=== PATIENT | male | born 1975 | race Caucasian/White ===

== ENCOUNTER 2024-03-08 02:18 | Emergency (ER) | payer BC, SELFPAY ==
[2024-03-08 02:32] VITALS: BP 130/90; PULSE 108; RESP 18; TEMP 36.4; O2SAT 97; BMI 31.5
--- NOTE | 2024-03-08 02:45 | XR_ITS ---
Examination: PA lateral chest 2 views Technique: Upright PA lateral chest 2 views Exam date and time: March 08, 2024 0303 hrs. Comparison October 04, 2010 Indications: Coughing today. Findings: Mild CHF Mild enlargement cardiac contour Prominent vascular congestion with perihilar edema and fluid in the fissures on the lateral view as well as blunting of the posterior costophrenic angles Possible superimposed pneumonia right base Impression: Mild CHF Suspicious for mild pneumonia right base
--- NOTE | 2024-03-08 02:46 | PD.EDRME ---
Rapid Medical Screening Exam RME Arrival date/time: 03/08/24 02:18 48-year-old male with past medical history of diabetes presents emergency department complaining of shortness of breath with productive cough has been ongoing for several days. Chief Complaint: Shortness of Breath/Dyspnea Time Seen by Provider: 03/08/24 02:40 Vital signs: Vital Signs Temperature 97.5 F 03/08/24 02:32 Pulse Rate 108 H 03/08/24 02:32 Respiratory Rate 18 03/08/24 02:32 Blood Pressure 130/90 H 03/08/24 02:32 Pulse Oximetry (%) 97 03/08/24 02:32 Oxygen Delivery Method Room Air 03/08/24 02:32 Vital signs reviewed by provider: Yes
[2024-03-08 03:30] LABS: Basophils # (Auto) 0.1 Thou/mm3 (0.0-0.2); Basophils % (Auto) 1 % (0-2.5); Eosinophils # (Auto) 0.2 Thou/mm3 (0.0-0.5); Eosinophils % (Auto) 2 % (0-10); Hematocrit 51.4 % (41.0-53.0); Hemoglobin 17.8 g/dL (13.5-16.0); Immature Granulocytes % (Auto) 1 % (0-0); Immature Granulocytes Auto 0.06 Thou/mm3 (0.00-0.00); Lymphocytes # (Auto) 2.2 Thou/mm3 (1.0-4.8); Lymphocytes % (Auto) 22 % (10-50); Mean Corpuscular HGB Conc 34.6 g/dl (31.0-37.0); Mean Corpuscular Hemoglobin 28.3 pg (25.0-35.0); Mean Corpuscular Volume 82 fL (80-100); Monocytes # (Auto) 0.8 Thou/mm3 (0.0-0.8); Monocytes % (Auto) 8 % (0-12); Neutrophils # (Auto) 6.8 Thou/mm3 (1.8-7.7); Neutrophils % (Auto) 67 % (37-80); Nucleated Red Blood Cell % 0 /100 WBC (0); Platelet Count 328 Thou/mm3 (140-440); RDW Standard Deviation 38.5 fL (35.1-43.9); Red Blood Count 6.29 Miln/mm3 (4.50-5.90); White Blood Count 10.1 Thou/mm3 (3.8-10.6)
[2024-03-08 03:59] LABS: Alanine Aminotransferase 44 U/L (10-49); Albumin, Serum 3.7 gm/dL (3.5-5.0); Albumin/Globulin Ratio 1.5 (1.2-2.2); Alkaline Phosphatase 106 U/L (46-116); Anion Gap 7 (7-16); Aspartate Amino Transferase 36 U/L (0-34); BUN/Creatinine Ratio 20 Ratio (12-20); Bilirubin,Total 0.5 mg/dL (0.3-1.2); Blood Urea Nitrogen 18 mg/dL (9-23); Calcium 8.9 mg/dL (8.3-10.6); Calcium (Corrected) 9.1 mg/dL (8.5-10.1); Carbon Dioxide 24.4 mMol/L (20.0-31.0); Chloride 100 mMol/L (98-107); Creatinine (Component) 0.9 mg/dL (0.6-1.3); Estimated Creatinine Clearance 116.3 mL/min (>60); Globulin 2.5 gm/dL (2.3-3.5); Glucose 349 mg/dL (74-106); Osmolality,Calculated 278 (275-295); Potassium 4.2 mMol/L (3.4-5.1); Sodium 131 mMol/L (136-145); Total Protein 6.2 gm/dL (5.7-8.2); Troponin I 0.044 ng/mL (0.0-0.045); eGFR > 60 See Note
--- NOTE | 2024-03-08 04:43 | PD.EDSOB ---
ED SOB =RME/HPI General Chief Complaint: Shortness of Breath/Dyspnea Stated Complaint: DIFF BREATHING Time Seen by Provider: 03/08/24 02:40 Source: patient Arrival date/time: 03/08/24 02:18 48-year-old male with past medical history of diabetes presents emergency department complaining of shortness of breath with productive cough has been ongoing for several days. Mode of arrival: ambulatory Limitations: no limitations RME / HPI RME / HPI Narrative: 03/08/24 02:18 48-year-old male with past medical history of diabetes presents emergency department complaining of shortness of breath with productive cough has been ongoing for several days. Related Data Previous Rx's ?Medication ?Instructions ?Recorded ibuprofen 800 mg tablet 800 mg PO TID PRN pain #30 tabs 10/18/22 levofloxacin 750 mg tablet 750 mg PO QDAY 5 days #5 tabs 03/08/24 Allergies Allergy/AdvReac Type Severity Reaction Status Date / Time No Known Allergies Allergy Verified 03/08/24 02:20 Review of Systems Review of Systems Systems Reviewed: All systems reviewed, normal except as documented Constitutional Constitutional: Reports system reviewed and no additional complaints, except as documented, Denies body ache(s), Denies chills and Denies fever(s) Eyes Eyes: Reports system reviewed and no additional complaints, except as documented and Denies change in vision ENT Ears, Nose, Mouth, and Throat: Reports system reviewed and no additional complaints, except as documented, Denies disequilibrium, Denies dizziness, Denies sore throat and Denies vertigo Cardiovascular Cardiovascular: Reports system reviewed and no additional complaints, except as documented, Denies chest pain and Reports dyspnea Respiratory Respiratory: Reports system reviewed and no additional complaints, except as documented, Denies chest congestion, Reports cough and Reports dyspnea Gastrointestinal Gastrointestinal: Reports system reviewed and no additional complaints, except as documented, Denies abdominal pain, Denies nausea and Denies vomiting Musculoskeletal Musculoskeletal: Reports system reviewed and no additional complaints, except as documented, Denies abnormal gait and Denies arthralgias Integumentary/Breasts Skin/Breast: Reports system reviewed and no additional complaints, except as documented, Denies erythema, Denies rash and Denies wounds Neurologic Neurologic: Reports system reviewed and no additional complaints, except as documented, Denies abnormal gait, Denies disequilibrium, Denies dizziness and Denies vertigo Past Medical History Social History SMOKING STATUS: Never smoker ED Exam General Limitations: Present no limitations General appearance: Present alert and in no apparent distress Head Head exam: Present atraumatic Eye Eye exam: Present normal appearance, PERRL and EOMI ENT ENT exam: Present normal exam, normal oropharynx and mucous membranes moist Neck Neck exam: Present normal inspection, full ROM and trachea midline Chest Chest inspection: Present normal inspection and symmetric chest wall rise Respiratory Respiratory exam: Present normal lung sounds bilaterally Expanded Respiratory Exam Location: Right: decreased breath sounds and Lower: decreased breath sounds Cardiovascular Cardiovascular exam: Present regular rate, normal rhythm and normal heart sounds Abdominal Exam Abdominal exam: Present soft and normal bowel sounds Extremities Exam Extremities exam: Present normal inspection and full ROM Back Exam Back exam: Present normal inspection and full ROM Neurological Exam Neurological exam: Present alert, oriented X3 and CN II-XII intact Psychiatric Psychiatric exam: Present normal affect and normal mood Skin Skin exam: Present warm, dry, intact and normal color Course Quality Measures none Orders Category Date Time Status Bedside COVID-19 Antigen Test NOW Care 03/08/24 02:45 Active Bedside Influenza A&B Antigen Test NOW Care 03/08/24 02:45 Completed XR chest 2V Stat Exams 03/08/24 02:45 Taken CBC Stat Lab 03/08/24 03:03 Completed Comprehensive Metabolic Panel Stat Lab 03/08/24 03:03 Completed Drug Screen,Urine Stat Lab 03/08/24 02:45 Ordered Troponin I Stat Lab 03/08/24 03:03 Completed Urinalysis, C/S if Indicated Stat Lab 03/08/24 02:45 Ordered 1,000 mg IM w/Lido* 1% Med 03/08/24 04:43 Ordered cefTRIAXone [Rocephin] 1,000 mg Lidocaine 1% 20 ml [Xylocaine 1% 20 ML] 2.1 ml IM X1 Vital Signs Vital signs: Vital Signs Temperature 97.5 F 03/08/24 02:32 Pulse Rate 108 H 03/08/24 02:32 Respiratory Rate 18 03/08/24 02:32 Blood Pressure 130/90 H 03/08/24 02:32 Pulse Oximetry (%) 97 03/08/24 02:32 Oxygen Delivery Method Room Air 03/08/24 02:32 97% room air within normal limits Shortness of Breath / Dyspnea MDM Narrative MDM Narrative:: 48-year-old male with past medical history of diabetes presents emergency department complaining of shortness of breath with productive cough has been ongoing for several days. CBC was unremarkable for any leukocytosis CMP was unremarkable other than elevated blood sugar. Chest x-ray right lower lobe pneumonia based on my interpretation. Patient appears nontoxic and hemodynamically stable. Patient not appear in any respiratory distress and is speaking in full sentences. Patient given IM Rocephin dose and instructed to stop taking Z-Jesus that was taking at home instructed to start taking Levaquin as prescribed. Patient instructed to follow-up with primary care provider in 24 to 48 hours and return to emergency department for any worsening symptoms or as needed. Patient data External records reviewed:: [facility] previous records Clinical information provided by:: patient Social determinants that could affect healthcare access:: none Patient has the following chronic illnesses:: See chart How is presenting disease/condition affected by chronic disease/condition?: uneffected by Evaluation data The following diagnostics were reviewed and interpreted by me:: lab results and radiology exam(s) Lab and/or radiology exams considered but not ordered:: Ordered Interpretation Summary: Interpreted by me Medications / Prescriptions Medications or Prescriptions considered but not ordered:: Ordered Medication administrations:: Given Consultations Consultation(s) initiated? (list below): No Diagnosis Shortness of Breath Differential Diagnosis: acute exacerbation of chronic obstructive airways disease, congestive heart failure, community acquired pneumonia, asthma with exacerbation and pulmonary embolism Most likely diagnosis given after review of the tests above:: Pneumonia Admission Indicated Admission indicated?: not indicated Admission Request Was there a request for admission?: No Disposition Plan Disposition Plan: Discharge Discharge Attestation Discharge Attestation: The patient and all family members were given an opportunity to ask questions and understood the discharge instructions. Discharge instructions specifically effects, indications for sooner follow up or return to the emergency department, and the expected course of current diagnosis. Patient condition: Stable Discharge Plan Plan Patient Disposition: HOME (Self Care) Disposition Comment: Stable Prescriptions/Referrals Prescriptions/Med Rec: New levofloxacin 750 mg tablet 750 mg PO QDAY 5 Days Qty: 5 0RF No Action ibuprofen 800 mg tablet 800 mg PO TID PRN (Reason: pain) Qty: 30 0RF Referrals: Kristopher Burnett MD [Primary Care Provider] - In 1 week Problem List Clinical Impression: Community acquired pneumonia Patient/Caregiver Discharge Instructions Discharge Activity: activity as tolerated Education Materials: ED Pneumonia (Adult) Additional Instructions: Stop taking Z-Jesus. Start taking new antibiotic as prescribed. Close follow-up primary care provider in 24 to 48 hours and return to emergency department for any worsening symptoms or as needed. Print Language: [place] Stand Alone Forms: Laly Award Info., Patient Portal Info Letter PA/DRUG ROOM CLERK Supervising Physician PA/DRUG ROOM CLERK Supervising Physician: Dr. Jack
[2024-03-08] MEDS: cefTRIAXone 1,000 MG, LIDOCAINE 1% 20 ML 2.1 ML IM (04:55)
== END 2024-03-08 05:07 | disposition home or self-care (01) ==
PROVIDERS: Emergency Provider Emergency Medicine; PCP Family Medicine
DX: J18.9 Pneumonia, unspecified organism (principal)
CPT/HCPCS: 36415; 71046; 80053; 80307; 81001; 84484; 85025; 87400; 87811; 96372; 99283; J0696; J3490

== ENCOUNTER 2024-03-26 06:19 | Inpatient (IN) | payer BC, SELFPAY ==
[2024-03-26] VITALS (12 sets, daily range): BP systolic 106–137; BP diastolic 73–93; PULSE 102–111; RESP 18–20; TEMP 36.3–36.9; O2SAT 94–99; BMI 34.2
--- NOTE | 2024-03-26 06:47 | PD.EDSOB ---
ED SOB =RME/HPI General Chief Complaint: Shortness of Breath/Dyspnea Stated Complaint: SOB Time Seen by Provider: 03/26/24 06:41 Arrival date/time: 03/26/24 06:19 This is a 48-year-old male that comes in with complaints of shortness of breath for the past 2 weeks. Patient was seen here in the emergency room on Related Data Previous Rx's ?Medication ?Instructions ?Recorded ibuprofen 800 mg tablet 800 mg PO TID PRN pain #30 tabs 10/18/22 Allergies Allergy/AdvReac Type Severity Reaction Status Date / Time No Known Allergies Allergy Verified 03/26/24 06:20 Course Vital Signs Vital signs: Vital Signs Temperature 97.9 F 03/26/24 06:27 Pulse Rate 109 H 03/26/24 06:27 Respiratory Rate 19 03/26/24 06:27 Blood Pressure 137/93 H 03/26/24 06:27 Pulse Oximetry (%) 97 03/26/24 06:27 Oxygen Delivery Method Room Air 03/26/24 06:27 Discharge Plan Prescriptions/Referrals Prescriptions/Med Rec: No Action ibuprofen 800 mg tablet 800 mg PO TID PRN (Reason: pain) Qty: 30 0RF Patient/Caregiver Discharge Instructions Print Language: Faroese
--- NOTE | 2024-03-26 06:48 | XR_ITS ---
Examination: PA lateral chest 2 views Technique: Upright PA lateral chest 2 views Exam date and time: March 26, 2024 0700 hrs. Comparison March 08, 2024 Indications: Chest pain today. Findings: Mild heart failure Mild enlargement cardiac contour Prominent vascular congestion including central vascular engorgement Early perihilar basilar edema Intact osseous structures Impression: Early CHF
--- NOTE | 2024-03-26 06:48 | EKG_ITS ---
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: : 1975 Requested By: Brunilda Manley Order Number: [id number] Reading MD: Brunilda Manley Measurements Intervals [place] Rate: 104 P: 63 TX: 184 QRS: -90 QRSD: 88 T: 120 QT: 328 QTc: 432 Interpretive Statements SINUS TACHYCARDIA WITH OCCASIONAL ECTOPIC PREMATURE COMPLEXES LOW QRS VOLTAGE IN EXTREMITY LEADS [QRS DEFLECTION < 0.5 mV IN LIMB LEADS] INFERIOR MYOCARDIAL INFARCTION , PROBABLY OLD [40+ ms Q WAVE AND/OR ST/T ABNORMALITY IN II/aVF] ANTEROSEPTAL MYOCARDIAL INFARCTION , OF INDETERMINATE AGE [40+ ms Q WAVE IN V1-V4] No previous ECG available for comparison /store/S0/[id number]
--- NOTE | 2024-03-26 06:51 | PD.EDRME ---
Rapid Medical Screening Exam RME Arrival date/time: 03/26/24 06:19 This is a 48-year-old male that comes in with complaints of shortness of breath for the past 2 weeks. Patient was seen here in the emergency room on 03/08/24 and diagnosed with pneumonia. Patient states that he was sent home on antibiotics and an inhaler and did feel a little bit better but continues to have shortness of breath. Patient states he has a hard time laying down flat. Patient reports that he cannot breathe when he is laying down flat. Patient was seen at the urgent care 3 days ago and was given a Rocephin shot again but states it did not make any bit of a difference. patient has a history of diabetes. I have greeted and performed a focused initial assessment of this patient. Initial appropriate labs ordered at this time. A comprehensive ED assessment and evaluation of the patient and analysis of all test and completion of medical decision making process will be conducted by additional ED provider. Chief Complaint: Shortness of Breath/Dyspnea Time Seen by Provider: 03/26/24 06:41 Vital signs: Vital Signs Temperature 97.9 F 03/26/24 06:27 Pulse Rate 109 H 03/26/24 06:27 Respiratory Rate 19 03/26/24 06:27 Blood Pressure 137/93 H 03/26/24 06:27 Pulse Oximetry (%) 97 03/26/24 06:27 Oxygen Delivery Method Room Air 03/26/24 06:27
[2024-03-26 07:40] LABS: Basophils # (Auto) 0.1 Thou/mm3 (0.0-0.2); Basophils % (Auto) 1 % (0-2.5); Eosinophils # (Auto) 0.2 Thou/mm3 (0.0-0.5); Eosinophils % (Auto) 2 % (0-10); Hematocrit 51.8 % (41.0-53.0); Hemoglobin 17.3 g/dL (13.5-16.0); Immature Granulocytes % (Auto) 1 % (0-0); Immature Granulocytes Auto 0.07 Thou/mm3 (0.00-0.00); Lymphocytes % (Auto) 22 % (10-50); Mean Corpuscular HGB Conc 33.4 g/dl (31.0-37.0); Mean Corpuscular Hemoglobin 28.3 pg (25.0-35.0); Mean Corpuscular Volume 85 fL (80-100); Monocytes # (Auto) 0.7 Thou/mm3 (0.0-0.8); Monocytes % (Auto) 7 % (0-12); Neutrophils # (Auto) 6.4 Thou/mm3 (1.8-7.7); Neutrophils % (Auto) 68 % (37-80); Nucleated Red Blood Cell % 0 /100 WBC (0); Platelet Count 313 Thou/mm3 (140-440); RDW Standard Deviation 40.9 fL (35.1-43.9); Red Blood Count 6.11 Miln/mm3 (4.50-5.90); White Blood Count 9.4 Thou/mm3 (3.8-10.6)
[2024-03-26 07:54] LABS: Alanine Aminotransferase 65 U/L (10-49); Albumin, Serum 3.9 gm/dL (3.5-5.0); Albumin/Globulin Ratio 1.8 (1.2-2.2); Alkaline Phosphatase 153 U/L (46-116); Anion Gap 4 (7-16); Aspartate Amino Transferase 41 U/L (0-34); BUN/Creatinine Ratio 9 Ratio (12-20); Bilirubin,Total 0.6 mg/dL (0.3-1.2); Blood Urea Nitrogen 10 mg/dL (9-23); Calcium 8.8 mg/dL (8.3-10.6); Calcium (Corrected) 8.9 mg/dL (8.5-10.1); Carbon Dioxide 28.6 mMol/L (20.0-31.0); Chloride 98 mMol/L (98-107); Creatinine (Component) 1.1 mg/dL (0.6-1.3); Globulin 2.2 gm/dL (2.3-3.5); Osmolality,Calculated 280 (275-295); Potassium 4.4 mMol/L (3.4-5.1); Sodium 131 mMol/L (136-145); Total Protein 6.1 gm/dL (5.7-8.2); Troponin I 0.036 ng/mL (0.0-0.045); eGFR > 60 See Note
[2024-03-26 07:56] LABS: Glucose 446 mg/dL (74-106)
--- NOTE | 2024-03-26 08:08 | PC.NURSE ---
PT IN TODAY FOR SOB THAT STARTED 2 WEEKS AGO. PT STATES THAT HE DID COME IN AND WAS SEEN AND SENT HOME ON ORAL ABX. PT TOOK MEDS, STARTED TO FEEL BETTER THEN WORSE AGAIN. PT DID GO TO URGENT CARE AND WAS PRESCRIBED AND INHALER AND A SHOT OF ROCEPHIN. PT DOES HAVE AN ALBUTEROL INHALER AT HOME A DID ADMINISTER A PUFF PRIOR TO COMING IN. PT IS RESTING AT THIS TIME, ON RA AND SPO2 94%. LUNG SOUNDS ARE CLEAR. PT PRESENTS IN NO APPARENT DISTRESS DURING ASSESSMENT. STATES THAT IT'S INTERMITTENT WHEN THE SOB HAPPENS. PT AWAITING TO BE SEEN BY .
[2024-03-26 08:18] LABS: B-Type Natriuretic Peptide 118 pg/mL (0-100)
[2024-03-26] MEDS: FUROSEMIDE INJ 10 MG/ML 4ML VIAL 80 MG IVP (11:13)
[2024-03-26] MEDS: INSULIN HUM REGULAR 1 UNIT/0.01 ML (PER UNIT) 6 UNIT IV (11:17)
[2024-03-26 12:16] LABS: Collection Type, Urine Clean Catch; Squamous Epithelial Cell,Urine 0 /hpf (0-5); WBC,Urine 0 /hpf (0-5)
[2024-03-26 12:48] LABS: Bilirubin,Urine Negative (Negative); Blood,Urine Negative (Negative); Clarity,Urine Clear (Clear/Hazy); Color,Urine Lt-Yellow (Lt Yel-Yel); Glucose, Urine 4+ (Negative); Ketones,Urine Negative (Negative); Leukocyte Esterase,Urine Negative (Negative); Nitrite,Urine Negative (Negative); PH,Urine 6.5 (5.0-7.0); Protein,Urine Negative (Neg - Trace); RBC,Urine 2 /hpf (0-3); Specific Gravity,Urine 1.025 (1.001-1.035); Urobilinogen,Urine Negative mg/dL (0.0-1.0)
[2024-03-26 12:50] LABS: Beta Hydroxybutyrate 0.1 mmol/L (<0.6)
[2024-03-26 13:01] LABS: Glucose Estimated Average 355 mg/dL (80-131); Troponin I 0.032 ng/mL (0.0-0.045)
--- NOTE | 2024-03-26 13:37 | ECHO_ITS ---
Transthoracic Echo Report Ht (in): 70 Wt (lb): 239 Exam Location: Portable Status: Inpatient Egg Processor: Krista Mayer Indications: Procedure Performed: BP: 97 / 68 HR: 103 Rhythm: Tachycardia Technical Quality: Fair MEASUREMENTS (Male / Female) Normal Values 2D ECHO LV Diastolic Diameter PLAX 6.1 cm 4.2 - 5.9 / 3.9 - 5.3 cm LV Systolic Diameter PLAX 5.2 cm IVS Diastolic Thickness 0.7 cm 0.6 - 1.0 / 0.6 - 0.9 cm LVPW Diastolic Thickness 0.8 cm 0.6 - 1.0 / 0.6 - 0.9 cm LV Relative Wall Thickness 0.3 LVOT Diameter 2.0 cm LA Volume Index 30.3 cm?/m? 16 - 28 cm?/m? Ascending Aorta Diameter 2.9 cm M-MODE Aortic Root Diameter MM 3.1 cm LA Systolic Diameter MM 4.0 cm LA Ao Ratio MM 1.3 MV E Point Septal Separation 1.7 cm AV Cusp Separation MM 2.2 cm DOPPLER AV Peak Velocity 86.2 cm/s AV Peak Gradient 3.0 mmHg AV Mean Gradient 2.0 mmHg AV Velocity Time Integral 12.0 cm LVOT Peak Velocity 64.3 cm/s LVOT Peak Gradient 1.7 mmHg LVOT Velocity Time Integral 7.1 cm LVOT Cardiac Index 982.6 cm?/min?m? AV Area Cont Eq vti 1.9 cm? AV Area Cont Eq pk 2.3 cm? MV Peak Velocity 129.0 cm/s MV Peak Gradient 6.7 mmHg MV Mean Velocity 68.5 cm/s MV Mean Gradient 2.0 mmHg MV Area PHT 5.8 cm? MR Peak Velocity 368.5 cm/s MR Peak Gradient 54.3 mmHg Mitral E Point Velocity 96.5 cm/s Mitral A Point Velocity 2.9 cm/s Mitral E to A Ratio 33.2 LV E' Lateral Velocity 7.5 cm/s Mitral E to LV E' Lateral Ratio 12.8 LV E' Septal Velocity 5.2 cm/s Mitral E to LV E' Septal Ratio 18.5 TR Peak Velocity 229.5 cm/s TR Peak Gradient 21.1 mmHg FINDINGS Left Ventricle Dilated left ventricle. Severe systolic dysfunction. Moderate global hypokinesis. The ejection frac tion is visually estimated at 30-35%. Right Ventricle The right ventricle is normal in size and systolic function. The estimated right ventricular systoli c pressure, 32mmHg. RAP 5. Left Atrium The left atrium is mildly dilated. Right Atrium The right atrium is normal by two-dimensional imaging, color flow and Doppler imaging with no struct ural abnormalities, no thrombus formation present. Atrial Septum The interatrial septum appears normal with no evidence of a shunt. Aorta The aorta is normal by two-dimensional, color flow and Doppler interrogation. Mitral Valve The mitral valve is normal by two-dimensional, color flow and Doppler interrogation. There is mild m itral valve regurgitation. Aortic Valve The aortic valve is trileaflet and normal by two-dimensional, color flow and Doppler interrogation. There is no significant aortic valve regurgitation. Tricuspid Valve The tricuspid valve is normal by two-dimensional, color flow and Doppler interrogation. There is tra ce tricuspid valve regurgitation. Pulmonic Valve There is mild pulmonic valve regurgitation. Vessels The pulmonary artery appears normal. The inferior vena cava pulmonary and hepatic veins appear brent l. Pericardium The pericardium is normal by two-dimensional imaging. There is no significant pericardial effusion. Other Findings Pleural effusion present. CONCLUSIONS Dilated LV. Severe systolic dysfunction. Moderate global hypokinesis. Estimated EF 30-35% Normal RV size and function. Mild MR, PI. Trace TR. Pleural effusion present. Elin Lyles (Electronically Signed) Final Date: 28 March 2024 16:45
--- NOTE | 2024-03-26 14:04 | ESHP_ITS ---
<Statement entered by Ryan Vaughan MD - 03/27/24 12:17> I have discussed and was present for the essential components of the history, physical examination, diagnosis, and treatment plan with the resident. I agree with the patient's care as documented by the resident and amended herein by me. Ryan Vaughan MD. <Statement entered by Sean Garcia MD - 03/26/24 20:43> Patient was seen and examined at the bedside. Patient reported that he had increasing dyspnea upon exertion with signs of orthopnea and PND from past couple of weeks. Patient's was present at bedside and she reported the patient has been using several pillows to prop up. He denied any chest pain however EKG findings showed Q waves in lead I aVL and anterior precordial leads depicting old TX no other EKG to compare. Additionally, patient's CMP panel was significant for blood glucose elevated in 400s. A1c came out 14. Troponin I was mildly elevated. BNP was 118. Beta-hydroxybutyrate 0.1. U tox was negative. Chest x-ray showed mild heart failure pattern. Patient was only taking metformin for type 2 diabetes management. He is admitted for workup of new onset CHF and was given Lasix 80 mg x 1 in the ED. He is making good urine output and Lasix 20 mg was scheduled for morning. Will follow-up on echocardiogram and rest of the labs in the morning. Patient was given Lantus 15 units x 1 during admission and later in the evening blood sugars were consistently elevated in 270s therefore additional Lantus 15 units was given with lispro sliding scale. Patient does have erythrocytosis on CBC will likely follow-up on echocardiogram. Strict PHYLICIA's, fluid restriction and carb consistent diet for now. We are referring him to refer to registered dietitian. Started aspirin for concern of CAD and nitroglycerin for chest pain as needed. All labs and orders were reviewed. I saw and examined the patient, and I agree with current management stated by Dr Carlos MD,PGY1. Plan of care was discussed with the attending physician and resident physician. Disclaimer: Despite multiple revisions, due to the dictation software being used, the document bellow may not be free of grammatical errors including phonetic/typographic errors. However, this does not deter from our commitment to providing health care in the patient's best interest in mind. Dr. Gail MD, PGY 2 Documentation for date of: 03/26/24 HPI History of Present Illness History of present illness: CC: SOB Patient is a 48-year-old male with a past medical history of diabetes mellitus type 2 qye-lhbkmyh-ssmyacgow (on metformin) who appears to be nonadherent to medication who presented to the emergency room with increasing dyspnea upon exertion. Patient stated he was recently discharged from the emergency room about 2 weeks ago and diagnosed with pneumonia. Discharged on antibiotics from ER, which he completed. Patient stated he continued to be short of breath and requires several pillows at night to prop himself up, paroxysmal nocturnal orthopnea, increasing shortness of breath walking from the kitchen to the restroom. Within the last two weeks patient noticed lower pedal edema. Patient denied chest pain. Denied pleuritic chest pain. Patient denied pyrexia or chills. Admitted on 03/26/2024 for CHF work up. ER Vitals T97.9, HR 109, RR 19, BP 137/93, SpO2 97% RA CBC (03/26/2024): WBC 9.4, hemoglobin 17.3 (H), Hematocrit 51.8 CMP (03/26/2024): NA 131-->Corrected NA 137, osmolarity, 280, Anion Gap 4, glucose 446, estimated average glucose 355, A1c 14.0 Troponin 0.036, 0.032 BNP 118 Beta-hydroxybutyrate 0.1 UA : glucose + Utox negative Cxr (03/26/2024): Mild heart failure. Mild enlargement cardiac contour Prominent vascular congestion including central vascular engorgement EKG (03/26/2024): Sinus Tachycardia w/ occasional ectopic premature complexes Low QRS voltage, likely Q waves. Less likely ST elevation. PMH: Diabetes mellitus type 2 (metformin) Past Surgical History: Hernia Repair (remote) Past Family History: Maternal Parent-hx of COPD form smoking Home Medication: Metformin Social History: -Denied Illicit Drug Use -Denied Alcohol Use -Semi-Turner And Former Automatic Allergies: None Code Status: Review of Systems Review of Systems Narrative Review of Systems: General appearance: NO weight change, NO fatigue, NO weakness, NO fever, NO chills, NO night sweats, YES Dry- cough Skin: NO rash, NO itching, NO sores, NO moles HEENT: NO Trauma, NO nausea, NO vomiting, NO visual changes, NO blurry vision, NO double vision, NO tinnitus, NO vertigo, NO ear discharge, NO rhinorrhea, NO stuffiness, NO sneezing, NO allergy, NO epistaxis. NO Hoarseness, NO sore throat, NO swollen neck. Cardiac: NO Palpitations, YES dyspnea on exertion, YES orthopnea, YES paroxysmal nocturnal dyspnea, Not currently edema Respiratory: YES Shortness of Breath, NO Wheezing, NO Cough, NO Sputum, NO hemoptysis GI:NO appetite, NO nausea, NO vomiting, NO dysphagia, NO changes in bowel frequency, NO stool color, NO diarrhea, NO constipation, NO hemetemesis, NO hemorrhoids, NO melena, NO hematechezia, NO abdominal pain, NO jaundice Renal: NO frequency, NO hesitancy, NO urgency, NO hematuria, NO nocturia, NO incontinence MSK: NO muscle weakness, NO gout, NO arthritis, NO muscle stiffness Neuro: NO headaches, NO tremors, NO weakness, NO paralysis, NO seizures, NO loss of consciousness, NO numbness. Hem: NO anemia, NO easy bruising/bleeding, NO petechiae, NO purpura Endo: NO heat/cold intolerance, NO excessive sweating, NO polyuria, NO polydipsia, NO polyphagia, NO thyroid problems, YES diabetes Pysch: NO mood, NO anxiety, NO depression Exam Vital Signs Temp Pulse Resp BP Pulse Ox O2 Del Method 98.2 F 104 H 18 118/79 94 L Room Air 03/26/24 11:00 03/26/24 13:51 03/26/24 13:51 03/26/24 13:51 03/26/24 13:51 03/26/24 13:51 Narrative Exam General Appearance: Alert & Oriented X3, well-nourished male who is lying in bed in bed and appears uncomfortable HEENT: Skull symmetrical and atraumatic. Conjunctivae pin and moist. Pupils equal, round, reactive to light and accommodation (PERRL). External ear without lesion or discharge. Straight, nares patient, dry mucosa , no discharge. Cardio: Normal Rate and Rhythm with S1 and S2 heart sounds. No murmurs or extra heart sounds auscultated. No bruits on carotid auscultation. No peripheral edema or cyanosis. JVD present. Lungs: Symmetric lung expansion. Chest and back non-tender. Breath sounds vesicular with possible crackles heard on left lower lung. Abdomen: Non-tender, Non-distended, Normal Reactive Bowel Sounds Neuro: Alert, cooperative, oriented to person, place, and time. Speech clear. CN grossly intact. Upper motor strength 5/5 and Lower motor strength 5/5. Sensation intact. Results: Labs 03/26/24 07:25 03/26/24 07:25 Labs: Short CBC 03/26/24 Range/Units 07:25 WBC 9.4 (3.8-10.6) Thou/mm3 Hgb 17.3 H (13.5-16.0) g/dL Hct 51.8 (41.0-53.0) % Plt Count 313 (140-440) Thou/mm3 BMP 03/26/24 07:25 Sodium 131 L Potassium 4.4 Chloride 98 Carbon Dioxide 28.6 BUN 10 Creatinine 1.1 Glucose 446 H* Calcium 8.8 Cardiac Enzymes 03/26/24 03/26/24 Range/Units 07:25 12:30 Troponin I 0.036 0.032 (0.0-0.045) ng/mL Liver Function 03/26/24 Range/Units 07:25 Total Bilirubin 0.6 (0.3-1.2) mg/dL AST 41 H (0-34) U/L ALT 65 H (10-49) U/L Alkaline Phosphatase 153 H (46-116) U/L Albumin 3.9 (3.5-5.0) gm/dL Urine 03/26/24 Range/Units 11:55 Urine Color Lt-Yellow (Lt Yel-Yel) Urine Clarity Clear (Clear/Hazy) Urine pH 6.5 (5.0-7.0) Ur Specific [place] 1.025 (1.001-1.035) Urine Protein Negative (Neg - Trace) Urine Glucose (UA) 4+ A (Negative) Quality Measures Quality Measures VTE prophylaxis Medications Home Medications and Allergies Allergies Allergy/AdvReac Type Severity Reaction Status Date / Time No Known Allergies Allergy Verified 03/26/24 06:20 Visit Medications Acetaminophen (Acetaminophen 325 Mg Tablet) 650 mg PO Q6H PRN PRN Reason: Mild Pain 1-3 or Fever >100.4 Stop: 04/25/24 11:29 Dextrose (Dextrose 50%-Water Inj 50 Ml Syringe) 25 ml IV Q15MIN PRN PRN Reason: BG 50-70 responsive npo pt Stop: 04/25/24 11:36 Dextrose (Dextrose 50%-Water Inj 50 Ml Syringe) 50 ml IV Q15MIN PRN PRN Reason: BG <50 OR BG <70 & pt unresponsive Stop: 04/25/24 11:36 Furosemide (Furosemide Inj 10 Mg/Ml Vial 2 Ml) 20 mg IVP BID PAT Stop: 04/26/24 08:59 Glucagon (Glucagon Inj 1 Mg Vial) 1 mg IM Q15MIN PRN PRN Reason: BG <70, and no IV access Heparin Sodium (Porcine) (Heparin Sod Inj 5000 Unit/Ml Vial) 5,000 unit SC Q12HR PAT Stop: 04/09/24 20:59 Insulin Human Lispro (Insulin Lispro (Admelog) 1 Unit/0.01 Ml Unit) 0 unit SC ACHS [facility]; Protocol Stop: 04/25/24 16:59 Discontinued Medications Furosemide (Furosemide Inj 10 Mg/Ml 4ml Vial) 80 mg IVP X1 ONE Stop: 03/26/24 10:33 Last Admin: 03/26/24 11:13 Dose: 80 mg Insulin Glargine (Insulin Glargine (Lantus) 5 Unit/0.05 Ml (Per 5 Units)) 15 unit SC X1 ONE Stop: 03/26/24 11:38 Insulin Human Regular (Insulin Hum Regular 1 Unit/0.01 Ml (Per Unit)) 6 unit IV X1 ONE Stop: 03/26/24 10:42 Last Admin: 03/26/24 11:17 Dose: 6 unit Assessment & Plan Plan Patient is a 48-year-old male with a past medical history of diabetes mellitus type 2 keb-[id number]-nkbkqoomm (on metformin) who was admitted on 03/26/2024 for working diagnosis of CHF. # working diagnosis Congestive Heart Failure Etiology: Given patient's dyspnea, orthopnea, paroxysmal orthopnea and history of lower pedal edema consider congestive heart failure as likely diagnosis. Although is 118, given patient's past likely BNP lowered. DDx: EKG showed sinus tachycardia with Q waves less likely ST elevation, troponins within range, denied chest pain versus PE D-dimer within normal range. Possible NSTEMI type I. Versus pericarditis given low voltage QRS complex but likely secondary to body habitus. NYHA Class:likely IV Pending-ASCVD Risk Calculator Plan: -Lasix 20 mg IVP BID, starting 03/27/2024 (received a total of 80 mg IV lasix in ER) -Work towards Guideline Directed Medical Therapy -Echo -TSH -Lipid Panel, Follow up AM labs and do ASCVD score. -K>4 and Mg >2 -SpO <90%, support PRN -Daily Weights, Strict Ins and Outs, Fluid Striction (1800 ml) -Consider -Cardiology Consult-Pending echo read #Diabetes Mellitus Type II, Non-insulin Dependent #Psuedo-Hypernatremia Patient has a past medical history of diabetes mellitus type 2 [id number]-pjetyurfs who nonadherent metformin (cannot recall dosage) and came in with an elevated glucose of 446. Given regular insulin 6 units. Upon admission administered 15 units of glargine x 1 and started on sliding scale. Diagnostics: -(03/26/2024) Corrected sodium for glucose -->139 -A1c 14.0 -(03/26/2024) Glucose 446 Plan -Lantus 15 units X1 on floors -Lantus 15 HS PAT start tonight 03/26/2024 -Sliding Scale Lispro -Follow Fasting Blood AM #Polycythemia vera Likely secondary to apnea (possible pulmonary HTN vs primary polycthemia vera Plan [facility] Health Maintenance: Disp: Pt is currently admitted to floors for further management of working diagnosis, awaiting echo. FEN: Diet Carb Consistent Low DVT: on subQ heparin Code: Full Code - The patient's plan was discussed with attending Dr. Vaughan and senior residents Dr. Gail Gonzalez MD PGY1 Internal Medicine
[2024-03-26] MEDS: INSULIN GLARGINE (Lantus) 5 UNIT/0.05 ML (PER 5 UNITS) 15 UNIT SC ×2 (15:20→20:58)
[2024-03-26 15:52] LABS: D-Dimer < 250 ng/mL (<600)
--- NOTE | 2024-03-26 16:25 | PC.CC ---
Kvng Chatterjee is a 48-year-old male admitted for New Onset CHF. Rn Dialysis made contact with Pt at bedside to complete initial and discuss discharge disposition. Role and reason for the contact was explained to Pt. Demographic information was verified. Pt identified his , Miranda Bonds [phone] as his surrogate decision maker. Pt is independent with all ADLs and no DME. Pt?s choice of pharmacy is [facility] on [facility]. PCP is Kristopher Burnett. At time of discharge patient will return home, family will provide transportation. Discharge Plan: Home Next of Kin: , Miranda Bonds [phone] PCP: Kristopher Burnett
--- NOTE | 2024-03-26 16:47 | EDNOTE_ITS ---
ED SOB =RME/HPI General Chief Complaint: Shortness of Breath/Dyspnea Stated Complaint: SOB Time Seen by Provider: 03/26/24 06:41 Arrival date/time: 03/26/24 06:19 Limitations: no limitations RME / HPI RME / HPI Narrative: 03/26/24 06:19 This is a 48-year-old male that comes in with complaints of shortness of breath for the past 2 weeks. Patient was seen here in the emergency room on 03/08/24 and diagnosed with pneumonia. Patient states that he was sent home on antibiotics and an inhaler and did feel a little bit better but continues to have shortness of breath. Patient states he has a hard time laying down flat. Patient reports that he cannot breathe when he is laying down flat. Patient was seen at the urgent care 3 days ago and was given a Rocephin shot again but states it did not make any bit of a difference. patient has a history of diabetes. I have greeted and performed a focused initial assessment of this patient. Initial appropriate labs ordered at this time. A comprehensive ED assessment and evaluation of the patient and analysis of all test and completion of medical decision making process will be conducted by additional ED provider. DR. CISCO HERRON ED EVALUATION: 48 year old male with a history of diabetes presents to the ED with a primary complaint of shortness of breath that began approximately 3 weeks ago and has progressively worsened. He was evaluated in the ED 2 weeks ago, diagnosed with pneumonia, and started on a course of antibiotics. He reports some initial improvement, but 2-3 days after completing the antibiotics, his shortness of breath returned. Three days ago, he was seen at an urgent care facility for worsening shortness of breath, now accompanied by leg swelling. He was given a Rocephin injection and prescribed a Fluticasone Diskus inhaler, but his symptoms have not improved. He describes his shortness of breath as worsening with exertion and when lying flat. He has had to use 3-4 pillows to sleep and wakes up frequently at night due to feeling short of breath. He denies any associated fever, chills, night sweats, weight loss, chest pain, chest pressure, jaw pain, or left arm pain. He also denies cough, abdominal pain, nausea, vomiting, diarrhea, or urinary symptoms. Notably, he has no prior history of similar symptoms before this episode began 3 weeks ago. Related Data Previous Rx's ?Medication ?Instructions ?Recorded ibuprofen 800 mg tablet 800 mg PO TID PRN pain #30 tabs 10/18/22 Allergies Allergy/AdvReac Type Severity Reaction Status Date / Time No Known Allergies Allergy Verified 03/26/24 06:20 Review of Systems Review of Systems Narrative Review of Systems: GEN: No fever, no chills, no weight loss EYES: No discharge, no visual changes, no pain HEENT: No ear pain, no congestion, no sore throat PULM: + shortness of breath, no cough, no congestion CV: No chest pain, + dyspnea on exertion, no palpitations GI: No nausea, no vomiting, no diarrhea, no pain, no constipation : No frequency, no urgency, no dysuria MUSC/SKEL: No joint pain, no back pain SKIN: No rash PSYCH: No hallucinations, no depression HEME/LYMPH: No easy bleeding or bruising tendencies NEURO: No weakness, no headache ED Exam General Limitations: Present no limitations General appearance: Present alert and in no apparent distress Head Head exam: Present atraumatic, normocephalic and normal inspection Eye Eye exam: Present normal appearance, PERRL and EOMI ENT ENT exam: Present normal exam, normal oropharynx and mucous membranes moist Neck Neck exam: Present normal inspection, full ROM and trachea midline Chest Chest inspection: Present normal inspection and symmetric chest wall rise Respiratory Respiratory exam: Present other (Mild rales at bases) Cardiovascular Cardiovascular exam: Present tachycardia and normal heart sounds Abdominal Exam Abdominal exam: Present soft and normal bowel sounds Extremities Exam Extremities exam: Present normal inspection and full ROM Back Exam Back exam: Present normal inspection and full ROM Neurological Exam Neurological exam: Present alert, oriented X3 and CN II-XII intact Psychiatric Psychiatric exam: Present normal affect and normal mood Skin Skin exam: Present warm, dry, intact and normal color Course Course Course Narrative: chest xray ordered to help determine etiology of shortness of breath. Quality Measures none Orders Category Date Time Status Admit to Inpatient Status Routine Admission 03/26/24 11:30 Active Patient Condition Routine Admission 03/26/24 11:30 Ordered Activity as Tolerated Routine Care 03/26/24 11:32 Ordered Bedside COVID-19 Antigen Test NOW Care 03/26/24 06:48 Completed Bedside Influenza A&B Antigen Test NOW Care 03/26/24 06:49 Completed Continuous Pulse Oximetry NOW Care 03/26/24 11:30 Completed EKG (ED ONLY) *Do not use* NOW Care 03/26/24 06:48 Completed Fluid restriction QDAY Care 03/26/24 11:36 Active Head of Bed Elevation NOW Care 03/26/24 11:43 Active Notify provider NEEDED Care 03/26/24 11:30 Active Obtain weight daily Care 03/26/24 11:31 Active Strict Intake and Output Routine Care 03/26/24 11:36 Ordered Diet Carbohydrate Consistent Diet 03/26/24 Lunch Active CA echo doppler complete Routine Exams 03/26/24 11:34 Stop Req EKG (ED Only) Stat Exams 03/26/24 06:48 Draft XR chest 2V Stat Exams 03/26/24 06:48 Completed BNP [B-Type Natriuretic Peptide] Stat Lab 03/26/24 07:25 Completed Beta Hydroxybutyrate Routine Lab 03/26/24 12:30 Completed CBC AM DRAW Lab 03/27/24 05:01 Completed CBC AM DRAW Lab 03/28/24 05:00 Ordered CBC AM DRAW Lab 03/29/24 05:00 Ordered CBC Stat Lab 03/26/24 07:25 Completed Comprehensive Metabolic Panel AM DRAW Lab 03/27/24 05:01 Completed Comprehensive Metabolic Panel AM DRAW Lab 03/28/24 05:00 Ordered Comprehensive Metabolic Panel AM DRAW Lab 03/29/24 05:00 Ordered Comprehensive Metabolic Panel Stat Lab 03/26/24 07:25 Completed Glycohemoglobin w (eAG) Routine Lab 03/26/24 12:30 Completed Lipid Panel AM DRAW Lab 03/27/24 05:01 Completed Magnesium AM DRAW Lab 03/27/24 05:01 Completed Magnesium AM DRAW Lab 03/28/24 05:00 Ordered Magnesium AM DRAW Lab 03/29/24 05:00 Ordered Thyroid Stimulating Hormone AM DRAW Lab 03/27/24 05:01 Completed Troponin I Routine Lab 03/26/24 12:30 Completed Troponin I Stat Lab 03/26/24 07:25 Completed UA [Urinalysis] Routine Lab 03/26/24 11:55 Completed Acetaminophen Tab [Tylenol Tab] Med 03/26/24 11:30 Active 650 mg PO Q6H PRN Dextrose 50% Syr [D50w Syringe Abboject] Med 03/26/24 11:37 Active 25 ml IV Q15MIN PRN Dextrose 50% Syr [D50w Syringe Abboject] Med 03/26/24 11:37 Active 50 ml IV Q15MIN PRN Furosemide Inj [Lasix Inj] Med 03/26/24 10:32 Discontinued 80 mg IVP X1 ONE Furosemide [Lasix Inj] Med 03/27/24 09:00 Active 20 mg IVP BID Glucagon Inj Med 03/26/24 11:37 Active 1 mg IM Q15MIN PRN Heparin Inj Med 03/26/24 21:00 Active 5,000 unit SC Q12HR INSULIN LISPRO (AdmeLOG) [HumaLOG] Med 03/26/24 17:00 Active See Protocol SC ACHS Insulin Glargine Inj [Lantus Inj] Med 03/26/24 11:37 Discontinued 15 unit SC X1 ONE Insulin Regular Med 03/26/24 10:41 Discontinued 6 unit IV X1 ONE Code Status Routine Oth 03/26/24 11:30 Ordered Oxygen Delivery NOW RT 03/26/24 11:30 Active Vital Signs Vital signs: Vital Signs Temperature 97.9 F 03/26/24 06:27 Pulse Rate 109 H 03/26/24 06:27 Respiratory Rate 19 03/26/24 06:27 Blood Pressure 137/93 H 03/26/24 06:27 Pulse Oximetry (%) 97 03/26/24 06:27 Oxygen Delivery Method Room Air 03/26/24 06:27 Pulse ox is 97% on room air which is adequate. Shortness of Breath / Dyspnea MDM Narrative MDM Narrative:: Layla De La Garza am scribing for and in the presence of Dr. Nichols. Patient data External records reviewed:: [facility] previous records (I reviewed ED visit on 03/08/2024) Clinical information provided by:: patient Social determinants that could affect healthcare access:: none Patient has the following chronic illnesses:: DM How is presenting disease/condition affected by chronic disease/condition?: uneffected by Evaluation data The following diagnostics were reviewed and interpreted by me:: lab results, radiology exam(s) and EKG tracing(s) (Sinus tachycardia with occasional PVC's, rate 108, Q-waves in inferior leads ) Lab and/or radiology exams considered but not ordered:: None Interpretation Summary: Ordering Physician: Brunilda Manley NP Date of Service: 03/26/24 Procedure(s): XR chest 2V Accession Number(s): [id number] cc: Johnathan Nunez MD; Brunilda Manley NP; Kristopher Burnett MD~ Examination: PA lateral chest 2 views Technique: Upright PA lateral chest 2 views Exam date and time: March 26, 2024 0700 hrs. Comparison March 08, 2024 Indications: Chest pain today. Findings: Mild heart failure Mild enlargement cardiac contour Prominent vascular congestion including central vascular engorgement Early perihilar basilar edema Intact osseous structures Impression: Early CHF Dictated By: Johnathan Nunez MD Signed By: <Electronically signed by Johnathan Nunez MD in OV> 03/26/24 0823 Medications / Prescriptions Medications or Prescriptions considered but not ordered:: None Medication administrations:: Medication Administration History Acetaminophen (Acetaminophen 325 Mg Tablet) 650 mg PO Q6H PRN PRN Reason: Mild Pain 1-3 or Fever >100.4 Stop: 04/25/24 11:29 Dextrose (Dextrose 50%-Water Inj 50 Ml Syringe) 25 ml IV Q15MIN PRN PRN Reason: BG 50-70 responsive npo pt Stop: 04/25/24 11:36 Dextrose (Dextrose 50%-Water Inj 50 Ml Syringe) 50 ml IV Q15MIN PRN PRN Reason: BG <50 OR BG <70 & pt unresponsive Stop: 04/25/24 11:36 Furosemide (Furosemide Inj 10 Mg/Ml Vial 2 Ml) 20 mg IVP BID REPLACED BY [facility] Stop: 04/26/24 08:59 Last Admin: 03/27/24 08:14 Dose: Not Given Documented By: SUKHWINDER Non-Admin Reason: Vital Signs Glucagon (Glucagon Inj 1 Mg Vial) 1 mg IM Q15MIN PRN PRN Reason: BG <70, and no IV access Heparin Sodium (Porcine) (Heparin Sod Inj 5000 Unit/Ml Vial) 5,000 unit SC Q12HR REPLACED BY [facility] Stop: 04/09/24 20:59 Last Admin: 03/27/24 08:14 Dose: 5,000 unit Documented By: SUKHWINDER Co-signed By: JENELLE Admin: 03/26/24 21:00 Dose: 5,000 unit Documented By: LUC Co-signed By: MOISES Insulin Glargine (Insulin Glargine (Lantus) 5 Unit/0.05 Ml (Per 5 Units)) 20 unit SC HS REPLACED BY [facility] Stop: 04/26/24 20:59 Insulin Human Lispro (Insulin Lispro (Admelog) 1 Unit/0.01 Ml Unit) 0 unit SC [facility] REPLACED BY [facility]; Protocol Stop: 04/25/24 16:59 Last Admin: 03/27/24 11:34 Dose: 8 unit Documented By: SUKHWINDER Co-signed By: JENELLE Admin: 03/27/24 08:13 Dose: 6 unit Documented By: SUKHWINDER Co-signed By: JENELLE Admin: 03/26/24 20:59 Dose: 4 unit Documented By: LUC Co-signed By: MOISES Admin: 03/26/24 17:06 Dose: 10 unit Documented By: ZENA Co-signed By: JACKI Nitroglycerin (Nitroglycerin 0.4 Mg Subl Btl #25) 0.4 mg SL Q5MIN PRN PRN Reason: CHEST PAIN Ondansetron HCl (Ondansetron Inj 2 Mg/Ml Inj 2 Ml) 4 mg IV Q6HR PRN; Protocol PRN Reason: NAUSEA OR VOMITING Stop: 04/26/24 00:13 Last Admin: 03/27/24 00:25 Dose: 4 mg Documented By: LUC Discontinued Medications Aspirin (Aspirin Ec 81 Mg Tabec) 81 mg PO X1 ONE Stop: 03/26/24 16:08 Last Admin: 03/26/24 17:06 Dose: 81 mg Documented By: LUCS Furosemide (Furosemide Inj 10 Mg/Ml 4ml Vial) 80 mg IVP X1 ONE Stop: 03/26/24 10:33 Last Admin: 03/26/24 11:13 Dose: 80 mg Documented By: ZENA Insulin Glargine (Insulin Glargine (Lantus) 5 Unit/0.05 Ml (Per 5 Units)) 15 unit SC X1 ONE Stop: 03/26/24 11:38 Last Admin: 03/26/24 15:20 Dose: 15 unit Documented By: ZENA Co-signed By: Insulin Glargine (Insulin Glargine (Lantus) 5 Unit/0.05 Ml (Per 5 Units)) 15 unit SC [facility] Stop: 04/25/24 20:59 Last Admin: 03/26/24 20:58 Dose: 15 unit Documented By: LUC Co-signed By: MLD Insulin Human Regular (Insulin Hum Regular 1 Unit/0.01 Ml (Per Unit)) 6 unit IV X1 ONE Stop: 03/26/24 10:42 Last Admin: 03/26/24 11:17 Dose: 6 unit Documented By: ZENA Co-signed By: TODD Lorazepam (Lorazepam 2 Mg/Ml Vial) 0.5 mg IVP X1 ONE Stop: 03/27/24 04:34 Last Admin: 03/27/24 04:48 Dose: 0.5 mg Documented By: LUC Melatonin (Melatonin 3 Mg Tablet) 3 mg PO X1 ONE Stop: 03/27/24 00:15 Last Admin: 03/27/24 00:25 Dose: 3 mg Documented By: LUC See above Consultations Consultation(s) initiated? (list below): Yes Consultation #1 (Physician, Specialty, Details): [phone]: First call out to resident, state they will call back [phone]: I spoke with resident Dr. Garcia working with Dr. Vaughan. Discussed patients PMHx, HPI, ED course, exam findings, labs, and radiology results. The hospitalist agree to accept the patient for admission. Diagnosis Shortness of Breath Differential Diagnosis: acute exacerbation of chronic obstructive airways disease, congestive heart failure, community acquired pneumonia and asthma with exacerbation Most likely diagnosis given after review of the tests above:: New onset CHF Admission Indicated Admission indicated?: indicated Admission Request Was there a request for admission?: Yes Admission Attestation Admission request attestation: Discussed case with [] from Hospitalist service regarding admission. Discussed patients ED course, exam findings, labs, and radiology results. The Hospitalist [agrees,declines] to accept the patient for admission. Disposition Plan Disposition Plan: Admit Discharge Plan Plan Patient Disposition: Admit Acute Care w/in Hospital Problem List Clinical Impression: New onset of congestive heart failure
[2024-03-26] MEDS: INSULIN LISPRO (AdmeLOG) 1 UNIT/0.01 ML UNIT SC ×2 (17:06→20:59)
[2024-03-26] MEDS: ASPIRIN EC 81 MG TABEC PO (17:06)
[2024-03-26 17:55] LABS: Amphetamine/Methamp Scrn,U Negative (Negative); Barbiturate Screen,Urine Negative (Negative); Benzodiazepines Screen,Urine Negative (Negative); Benzoylecgonine Screen, Ur Negative (Negative); Fentanyl Screen,Urine Negative (Negative); Opiate Screen,Urine Negative (Negative); THC Screen,Urine Negative (Negative)
--- NOTE | 2024-03-26 18:07 | PC.NURSE ---
Patient arrived from ER via [facility] on 2L O2, NC at 1807. Patient report received from ROSA ELENA Alfred. Patient transferred from [facility] to bed with minimum assistance. Patient made comfortable in bed, call light and personal belongings placed within reach. Family at bedside.
[2024-03-26] MEDS: HEPARIN SOD INJ 5000 UNIT/ML VIAL SC (21:00)
--- NOTE | 2024-03-26 23:54 | PC.NURSE ---
Dr. Johnson made aware of patient stating he is dizzy and nausea. New onset. VSS. FSBS at 162. MD states she will come and assess patient. 0005. MD at bedside. New orders to be placed for Melatonin and Zofran.
[2024-03-27] VITALS (10 sets, daily range): BP systolic 85–128; BP diastolic 68–88; PULSE 78–102; RESP 12–24; TEMP 35.9–36.3; O2SAT 92–99
[2024-03-27] MEDS: MELATONIN 3 MG TABLET PO ×2 (00:25→23:10)
[2024-03-27] MEDS: ONDANSETRON INJ 2 MG/ML INJ 2 ML 4 MG IV (00:25)
[2024-03-27] MEDS: LORazepam 2 MG/ML VIAL 0.5 MG IVP (04:48)
[2024-03-27 05:30] LABS: Basophils # (Auto) 0.1 Thou/mm3 (0.0-0.2); Basophils % (Auto) 1 % (0-2.5); Eosinophils # (Auto) 0.3 Thou/mm3 (0.0-0.5); Eosinophils % (Auto) 4 % (0-10); Hematocrit 51.6 % (41.0-53.0); Hemoglobin 16.9 g/dL (13.5-16.0); Immature Granulocytes % (Auto) 1 % (0-0); Immature Granulocytes Auto 0.06 Thou/mm3 (0.00-0.00); Lymphocytes # (Auto) 2.1 Thou/mm3 (1.0-4.8); Lymphocytes % (Auto) 25 % (10-50); Mean Corpuscular HGB Conc 32.8 g/dl (31.0-37.0); Mean Corpuscular Volume 85 fL (80-100); Monocytes # (Auto) 0.7 Thou/mm3 (0.0-0.8); Monocytes % (Auto) 8 % (0-12); Neutrophils # (Auto) 5.2 Thou/mm3 (1.8-7.7); Neutrophils % (Auto) 62 % (37-80); Nucleated Red Blood Cell % 0 /100 WBC (0); Platelet Count 264 Thou/mm3 (140-440); RDW Standard Deviation 41.1 fL (35.1-43.9); Red Blood Count 6.04 Miln/mm3 (4.50-5.90); White Blood Count 8.5 Thou/mm3 (3.8-10.6)
[2024-03-27 05:57] LABS: Alanine Aminotransferase 60 U/L (10-49); Albumin, Serum 3.6 gm/dL (3.5-5.0); Albumin/Globulin Ratio 1.6 (1.2-2.2); Alkaline Phosphatase 160 U/L (46-116); Anion Gap 7 (7-16); Aspartate Amino Transferase 57 U/L (0-34); BUN/Creatinine Ratio 17 Ratio (12-20); Bilirubin,Total 1.1 mg/dL (0.3-1.2); Blood Urea Nitrogen 15 mg/dL (9-23); Calcium 8.8 mg/dL (8.3-10.6); Calcium (Corrected) 9.1 mg/dL (8.5-10.1); Carbon Dioxide 27.4 mMol/L (20.0-31.0); Cardiac Risk Estimate 2.6 RATIO (4.0-6.7); Chloride 101 mMol/L (98-107); Cholesterol 147 mg/dL (132-200); Creatinine (Component) 0.9 mg/dL (0.6-1.3); Estimated Creatinine Clearance 121.1 mL/min (>60); Globulin 2.2 gm/dL (2.3-3.5); Glucose 248 mg/dL (74-106); HDL Cholesterol 56 mg/dL (40-60); LDL Cholesterol,Calculated 73 mg/dL (0-130); Magnesium 1.8 mg/dL (1.6-2.6); Osmolality,Calculated 278 (275-295); Potassium 4.3 mMol/L (3.4-5.1); Sodium 135 mMol/L (136-145); Thyroid Stimulating Hormone 1.75 uIU/mL (0.55-4.78); Total Protein 5.8 gm/dL (5.7-8.2); Triglycerides 88 mg/dL (30-150); eGFR > 60 See Note
[2024-03-27] MEDS: INSULIN LISPRO (AdmeLOG) 1 UNIT/0.01 ML UNIT SC ×4 (08:13→21:11)
[2024-03-27] MEDS: HEPARIN SOD INJ 5000 UNIT/ML VIAL SC ×2 (08:14→21:04)
--- NOTE | 2024-03-27 09:51 | ESPR_ITS ---
<Statement entered by Ryan Vaughan MD - 03/27/24 13:06> I have discussed and was present for the essential components of the history, physical examination, diagnosis, and treatment plan with the resident. I agree with the patient's care as documented by the resident and amended herein by me. Ryan Vaughan MD. Documentation for date of: 03/27/24 Subjective Subjective Interval history: Patient seen and examined at bedside. Family also at bedside. Patient states that he is feeling tired but better than he was yesterday. Per family at bedside, leg swelling had improved from last week. Blood pressure was low this morning, so lasix was held. Recorded net -750 cc Exam Vital Signs Temp Pulse Resp BP Pulse Ox O2 Del Method O2 Flow Rate 97.1 F 96 20 85/68 L 92 L Nasal Cannula 4 03/27/24 08:00 03/27/24 08:26 03/27/24 08:26 03/27/24 08:14 03/27/24 08:26 03/27/24 08:00 03/27/24 08:26 Narrative Exam Constitutional: NAD. Resting comfortably HEENT: NCAT. Vision grossly intact. Respiratory: CTAB bilaterally. Cardiac: RRR. Abdomen: Soft, non-distended, non-tender. MSK: 1-2+ b/l LE edema Skin: Warm, dry, intact. No obvious lesions. Neuro: Motor and sensation grossly intact. Psychiatric: Appropriate mood and affect. Objective Labs 03/27/24 05:01 03/27/24 05:01 Labs: Laboratory Results - last 24 hr 03/26/24 03/26/24 03/27/24 11:55 12:30 05:01 WBC 8.5 RBC 6.04 H Hgb 16.9 H Hct 51.6 MCV 85 MCH 28.0 MCHC 32.8 RDW Std Deviation 41.1 Plt Count 264 D Neut % (Auto) 62 Lymph % (Auto) 25 [place] % (Auto) 8 Eos % (Auto) 4 Baso % (Auto) 1 Neut # (Auto) 5.2 Lymph # (Auto) 2.1 [place] # (Auto) 0.7 Eos # (Auto) 0.3 Baso # (Auto) 0.1 Immature Gran # (Auto) 0.06 H Absolute Nucleated RBC 0.00 Immature Gran % 1 H Nucleated RBC % 0 D-Dimer < 250 Sodium 135 L Potassium 4.3 Chloride 101 Carbon Dioxide 27.4 Anion Gap 7 BUN 15 Creatinine 0.9 Estim Creat Clear Calc 121.1 eGFR > 60 BUN/Creatinine Ratio 17 Glucose [address] Glu mg/dL 355 H Hemoglobin A1c 14.0 H POC Hemoglobin A1c Cancelled Calculated Osmolality 278 Calcium 8.8 Corrected Calcium 9.1 Magnesium 1.8 Total Bilirubin 1.1 D AST 57 H ALT 60 H Alkaline Phosphatase 160 H Troponin I 0.032 Total Protein 5.8 Albumin 3.6 Globulin 2.2 L Albumin/Globulin Ratio 1.6 Triglycerides 88 Cholesterol 147 LDL Cholesterol, Calc 73 HDL Cholesterol 56 Cholesterol/HDL Ratio 2.6 L Beta-Hydroxybutyrate/Acetoacetate 0.1 TSH 1.75 Ur Collection Type Clean Catch Urine Color Lt-Yellow Urine Clarity Clear Urine pH 6.5 Ur Specific [place] 1.025 Urine Protein Negative Urine Glucose (UA) 4+ A Urine Ketones Negative Urine Blood Negative Urine Nitrite Negative Urine Bilirubin Negative Urine Urobilinogen (Auto) Negative Ur Leukocyte Esterase Negative Urine RBC 2 Urine WBC 0 Ur Squamous Epith Cells 0 Urine Bacteria None Urine Opiates Screen Negative Urine Fentanyl Screen Negative Ur Barbiturates Screen Negative U Amphetamin/Meth Scrn Negative U Benzodiazepines Scrn Negative U Cocaine Metab Screen Negative U Marijuana (THC) Screen Negative Quality Measures Quality Measures VTE prophylaxis Assessment & Plan Assessment Current Active Medications: Generic Name Dose Route Start Last Admin Trade Name Joseq PRN Reason Stop Dose Admin Acetaminophen 650 mg 03/26/24 11:30 Acetaminophen 325 Mg Tablet PO 04/25/24 11:29 Q6H PRN Mild Pain 1-3 or Fever >100.4 Dextrose 25 ml 03/26/24 11:37 Dextrose 50%-Water Inj 50 Ml Syringe IV 04/25/24 11:36 Q15MIN PRN BG 50-70 responsive npo pt Dextrose 50 ml 03/26/24 11:37 Dextrose 50%-Water Inj 50 Ml Syringe IV 04/25/24 11:36 Q15MIN PRN BG <50 OR BG <70 & pt unresponsive Furosemide 20 mg 03/27/24 09:00 03/27/24 08:14 Furosemide Inj 10 Mg/Ml Vial 2 Ml IVP 04/26/24 08:59 Not Given BID PAT Glucagon 1 mg 03/26/24 11:37 Glucagon Inj 1 Mg Vial IM Q15MIN PRN BG <70, and no IV access Heparin Sodium (Porcine) 5,000 unit 03/26/24 21:00 03/27/24 08:14 Heparin Sod Inj 5000 Unit/Ml Vial SC 04/09/24 20:59 5,000 unit Q12HR PAT Administration Insulin Glargine 15 unit 03/26/24 21:00 03/26/24 20:58 Insulin Glargine (Lantus) 5 Unit/0.05 Ml (Per 5 Units) SC 04/25/24 20:59 15 unit HS PAT Administration Insulin Human Lispro 0 unit 03/26/24 17:00 03/27/24 08:13 Insulin Lispro (Admelog) 1 Unit/0.01 Ml Unit SC 04/25/24 16:59 6 unit ACHS PAT Administration Protocol Nitroglycerin 0.4 mg 03/26/24 16:08 Nitroglycerin 0.4 Mg Subl Btl #25 SL Q5MIN PRN CHEST PAIN Ondansetron HCl 4 mg 03/27/24 00:14 03/27/24 00:25 Ondansetron Inj 2 Mg/Ml Inj 2 Ml IV 04/26/24 00:13 4 mg Q6HR PRN Administration NAUSEA OR VOMITING Protocol Plan Patient is a 48-year-old male with a past medical history of diabetes mellitus type 2 [id number] (on metformin) who was admitted on 03/26/2024 for acute hypoxic respiratory failure secondary to suspected new onset CHF. #Acute hypoxic respiratory failure #?New onset CHF Suspect new onset CHF, less likely PNA; suspect NYHA Class III-IV Orthopnea, dyspnea, LE edema. Suspect BNP falsely low due to his BMI. EKG showed sinus tachycardia with Q waves less likely ST elevation, troponins within range, denied chest pain versus PE D-dimer within normal range. Plan: - Lasix 20 IV twice daily - Echo - Strict PHYLICIA - Daily weights - Fluid restrict 1800 - Wean O2 as tolerated - Will consult cardio after echo read - Dry BNP on discharge #Diabetes Mellitus Type II, Non-insulin Dependent, A1c 14 Hold home meds - Increase Glargine 15 to 20 - Hold home meds - ISS #Polycythemia Differential include primary versus secondary - Consider checking JAK2, screen for sleep apnea Health Maintenance Disposition: admit for AHRF 2/2 new onset CHF, pending echo Diet and fluids: fluid restrict 1800, cardiac diet DVT prophylaxis: heparin GI prophylaxis: none CODE STATUS: FULL I have reviewed and discussed the patient's care with my attending, Dr. Clement Lincoln MD PGY-3
[2024-03-27] MEDS: LORazepam 0.5 MG TABLET 0.25 MG PO ×2 (15:23→17:06)
[2024-03-27] MEDS: INSULIN GLARGINE (Lantus) 5 UNIT/0.05 ML (PER 5 UNITS) 20 UNIT SC (20:59)
[2024-03-27] MEDS: FUROSEMIDE INJ 10 MG/ML VIAL 2 ML 20 MG IVP (21:12)
--- NOTE | 2024-03-27 22:07 | PC.NURSE ---
RN IN ROOM WHILE PATIENT SLEEPING. PT WOKE UP SOB, SAT UP AT EDGE OF BED. O2 AT 88%. ON 1L NC. PT STATES HE OFTEN WAKES UP GASPING FOR AIR . PROVIDED ADDITIONAL PILLOWS TO SLEEP SEMI-NESBITT POSITION. O2 SATS NOW AT 98%. CONTINUES TO STAY ON 1L NC.
[2024-03-28] VITALS (9 sets, daily range): BP systolic 94–119; BP diastolic 68–90; PULSE 63–103; RESP 13–22; TEMP 35.8–36.2; O2SAT 95–98; BMI 34.2
--- NOTE | 2024-03-28 04:20 | PC.NURSE ---
ATTEMPTED TO WEAN PATIENT OFF OXYGEN TO ROOM AIR. PT'S OXYGEN SATS AT 83% ON ROOM AIR. PLACED O2 2L NC, PT BACK UP TO 96%. NO SOB. PT WITH EYES CLOSED, NO SIGNS OF DISTRESS.
[2024-03-28 05:15] LABS: Basophils # (Auto) 0.1 Thou/mm3 (0.0-0.2); Basophils % (Auto) 1 % (0-2.5); Eosinophils # (Auto) 0.2 Thou/mm3 (0.0-0.5); Eosinophils % (Auto) 2 % (0-10); Hematocrit 51.7 % (41.0-53.0); Hemoglobin 16.9 g/dL (13.5-16.0); Immature Granulocytes % (Auto) 1 % (0-0); Immature Granulocytes Auto 0.06 Thou/mm3 (0.00-0.00); Lymphocytes # (Auto) 2.5 Thou/mm3 (1.0-4.8); Lymphocytes % (Auto) 27 % (10-50); Mean Corpuscular HGB Conc 32.7 g/dl (31.0-37.0); Mean Corpuscular Hemoglobin 28.3 pg (25.0-35.0); Mean Corpuscular Volume 87 fL (80-100); Monocytes # (Auto) 0.9 Thou/mm3 (0.0-0.8); Monocytes % (Auto) 10 % (0-12); Neutrophils # (Auto) 5.6 Thou/mm3 (1.8-7.7); Neutrophils % (Auto) 60 % (37-80); Nucleated Red Blood Cell % 0 /100 WBC (0); Platelet Count 233 Thou/mm3 (140-440); Red Blood Count 5.97 Miln/mm3 (4.50-5.90); White Blood Count 9.2 Thou/mm3 (3.8-10.6)
[2024-03-28 06:09] LABS: Alanine Aminotransferase 90 U/L (10-49); Albumin, Serum 3.6 gm/dL (3.5-5.0); Albumin/Globulin Ratio 1.7 (1.2-2.2); Alkaline Phosphatase 223 U/L (46-116); Anion Gap 7 (7-16); Aspartate Amino Transferase 95 U/L (0-34); BUN/Creatinine Ratio 18 Ratio (12-20); Bilirubin,Total 0.7 mg/dL (0.3-1.2); Blood Urea Nitrogen 16 mg/dL (9-23); Calcium 8.9 mg/dL (8.3-10.6); Calcium (Corrected) 9.2 mg/dL (8.5-10.1); Carbon Dioxide 30.2 mMol/L (20.0-31.0); Chloride 100 mMol/L (98-107); Creatinine (Component) 0.9 mg/dL (0.6-1.3); Estimated Creatinine Clearance 150.6 mL/min (>60); Globulin 2.1 gm/dL (2.3-3.5); Glucose 76 mg/dL (74-106); Magnesium 1.9 mg/dL (1.6-2.6); Osmolality,Calculated 274 (275-295); Potassium 3.8 mMol/L (3.4-5.1); Sodium 137 mMol/L (136-145); Total Protein 5.7 gm/dL (5.7-8.2); eGFR > 60 See Note
[2024-03-28] MEDS: INSULIN LISPRO (AdmeLOG) 1 UNIT/0.01 ML UNIT SC ×4 (07:37→20:25)
[2024-03-28] MEDS: ASPIRIN EC 81 MG TABEC PO (09:05)
[2024-03-28] MEDS: HEPARIN SOD INJ 5000 UNIT/ML VIAL SC ×2 (09:06→20:25)
[2024-03-28] MEDS: FUROSEMIDE INJ 10 MG/ML VIAL 2 ML 20 MG IVP (09:06)
[2024-03-28] MEDS: POTASSIUM CHLORIDE 20 mEq TABCR PO (09:09)
--- NOTE | 2024-03-28 11:16 | XR_ITS ---
Examination: Abdomen sonogram, Limited Date and time of exam: March 28, 2024 at 12:53 PM INDICATIONS: Elevated liver function tests on laboratory examination March 28, 2024 FINDINGS: Normal gallbladder Technique: Real-time fink scale transabdominal sonographic images of the upper abdomen obtained. Findings: Normal gallbladder Normal common bile duct 0.3 cm Pancreatic head 2.8 cm Liver 16.3 cm no focal liver lesions Normal hepatopedal portal venous flow Patent IVC IMPRESSION: Normal gallbladder Normal common bile duct
[2024-03-28 13:12] LABS: Hepatitis A Antibody IgM Non Reactive (Non React); Hepatitis B Core Antibody IgM Non Reactive (Non React); Hepatitis B Surface Antigen Non Reactive (Non React); Hepatitis C Antibody Non Reactive (Non React)
[2024-03-28 15:02] LABS: Creatinine MALB Rnd Ur 98 mg/dL (30-125); Microalbumin Creat Ratio 56 mg/gCrea (<30); Microalbumin, Random Urine 55 mg/L (0-300)
--- NOTE | 2024-03-28 15:38 | ESPR_ITS ---
<Statement entered by Sean Garcia MD - 03/28/24 18:20> Patient was seen and examined at the bedside. Patient's was also present at bedside. Patient reported that he still feels short of breath however has been feeling better since admission. Currently continuing with IV diuretic therapy. Continuing IV Lasix 20 mg due to soft blood pressure and will continue with Lantus 22 units at night. Additionally, echocardiogram showed dilated LV, severe systolic dysfunction, moderate global hypokinesis. EF 30-35%. Pleural effusion. Ordered urine microalbumin/creatinine ratio to evaluate proteinuria. Continuing fluid restriction with strict PHYLICIA's. All labs and orders were reviewed. I saw and examined the patient, and I agree with current management stated by Dr Carlos MD,PGY1. Plan of care was discussed with the attending physician and resident physician. Disclaimer: Despite multiple revisions, due to the dictation software being used, the document bellow may not be free of grammatical errors including phonetic/typographic errors. However, this does not deter from our commitment to providing health care in the patient's best interest in mind. Dr. Radha MD, PGY 2 Documentation for date of: 03/28/24 Subjective Subjective Interval history: Patient is a 48-year-old male with a past medical history of diabetes mellitus type 2 [id number] (on metformin) who was admitted on 03/26/2024 for possible CHF likely diagnosis. No overnight events reported for patient. Patient avoided eye contact this morning and most information gathered by patient's . Patient appeared depressed and anxious with likely CHF diagnosis. Patient denied chest pain or dyspnea. Denied chills or fevers overnight. Echo had just been taken for patient. Patient denied lower pedal edema. Exam Vital Signs Temp Pulse Resp BP Pulse Ox O2 Del Method O2 Flow Rate 96.5 F L 97 16 107/85 H 98 Nasal Cannula 1 03/28/24 12:00 03/28/24 12:00 03/28/24 12:00 03/28/24 12:00 03/28/24 12:00 03/28/24 12:00 03/28/24 12:00 Constitutional Comments: General Appearance: Alert & Oriented X3, well-nourished male who appears down and less incline to carry on a conversation, no in acute distress HEENT: Skull symmetrical and atraumatic. Conjunctivae pink and moist. Pupils equal, round, reactive to light and accommodation (PERRL). External ear without lesion or discharge. Straight, nares patient, mucosa pink, no discharge. No thyroid nodule appreciated. Cardio: Normal Rate and Rhythm with S1 and S2 heart sounds. No murmurs or extra heart sounds auscultated. No bruits on carotid auscultation. No peripheral edema or cyanosis. Lungs: Symmetric with good expansion. Chest and back non-tender. Breath sounds vesicular, crackles not noted on physical exam. Abdomen: Non-tender, Non-distended, Normal Reactive Bowel Sounds Neuro: Alert, cooperative, oriented to person, place, and time. Speech clear. CN grossly intact. Upper motor strength 5/5 and Lower motor strength 5/5. Sensation intact. Objective Labs 03/29/24 05:38 03/29/24 05:38 Labs: Laboratory Results - last 24 hr 03/28/24 03/28/24 03/28/24 04:21 04:27 14:20 WBC 9.2 RBC 5.97 H Hgb 16.9 H Hct 51.7 MCV 87 MCH 28.3 MCHC 32.7 RDW Std Deviation 42.0 Plt Count 233 D Neut % (Auto) 60 Lymph % (Auto) 27 Dougherty % (Auto) 10 Eos % (Auto) 2 Baso % (Auto) 1 Neut # (Auto) 5.6 Lymph # (Auto) 2.5 Dougherty # (Auto) 0.9 H Eos # (Auto) 0.2 Baso # (Auto) 0.1 Immature Gran # (Auto) 0.06 H Absolute Nucleated RBC 0.00 Immature Gran % 1 H Nucleated RBC % 0 Sodium 137 Potassium 3.8 D Chloride 100 Carbon Dioxide 30.2 Anion Gap 7 BUN 16 Creatinine 0.9 Estim Creat Clear Calc 150.6 eGFR > 60 BUN/Creatinine Ratio 18 Glucose 76 D Calculated Osmolality 274 L Calcium 8.9 Corrected Calcium 9.2 Magnesium 1.9 Total Bilirubin 0.7 AST 95 H ALT 90 H Alkaline Phosphatase 223 H D Total Protein 5.7 Albumin 3.6 Globulin 2.1 L Albumin/Globulin Ratio 1.7 Ur Random Microalbumin 55 U Creat (Microalbumin) 98 Microalb/Creat Ratio 56 H Hepatitis A IgM Ab Non Reactive Hep Bs Antigen Non Reactive Hep B Core IgM Ab Non Reactive Hepatitis C Antibody Non Reactive Quality Measures Quality Measures VTE prophylaxis Assessment & Plan Assessment Current Active Medications: Generic Name Dose Route Start Last Admin Trade Name Freq PRN Reason Stop Dose Admin Acetaminophen 650 mg 03/26/24 11:30 Acetaminophen 325 Mg Tablet PO 04/25/24 11:29 Q6H PRN Mild Pain 1-3 or Fever >100.4 Aspirin 81 mg 03/28/24 09:00 03/28/24 09:05 Aspirin Ec 81 Mg Tabec PO 04/27/24 08:59 81 mg QDAY PAT Administration Dextrose 25 ml 03/26/24 11:37 Dextrose 50%-Water Inj 50 Ml Syringe IV 04/25/24 11:36 Q15MIN PRN BG 50-70 responsive npo pt Dextrose 50 ml 03/26/24 11:37 Dextrose 50%-Water Inj 50 Ml Syringe IV 04/25/24 11:36 Q15MIN PRN BG <50 OR BG <70 & pt unresponsive Furosemide 20 mg 03/28/24 09:00 03/28/24 09:06 Furosemide Inj 10 Mg/Ml Vial 2 Ml IVP 04/27/24 08:59 20 mg QDAY PAT Administration Glucagon 1 mg 03/26/24 11:37 Glucagon Inj 1 Mg Vial IM Q15MIN PRN BG <70, and no IV access Heparin Sodium (Porcine) 5,000 unit 03/26/24 21:00 03/28/24 09:06 Heparin Sod Inj 5000 Unit/Ml Vial SC 04/09/24 20:59 5,000 unit Q12HR PAT Administration Insulin Glargine 22 unit 03/28/24 21:00 Insulin Glargine (Lantus) 5 Unit/0.05 Ml (Per 5 Units) SC 04/27/24 20:59 HS PAT Insulin Human Lispro 0 unit 03/26/24 17:00 03/28/24 12:18 Insulin Lispro (Admelog) 1 Unit/0.01 Ml Unit SC 04/25/24 16:59 4 unit ACHS PAT Administration Protocol Nitroglycerin 0.4 mg 03/26/24 16:08 Nitroglycerin 0.4 Mg Subl Btl #25 SL Q5MIN PRN CHEST PAIN Ondansetron HCl 4 mg 03/27/24 00:14 03/27/24 00:25 Ondansetron Inj 2 Mg/Ml Inj 2 Ml IV 04/26/24 00:13 4 mg Q6HR PRN Administration NAUSEA OR VOMITING Protocol Sennosides 1 tab 03/28/24 08:20 Senna Tablet PO 04/27/24 08:19 QDAY PRN CONSTIPATION Protocol Trazodone HCl 50 mg 03/28/24 21:00 Trazodone Hcl 50 Mg Tablet PO 04/27/24 20:59 HS PAT Plan Patient is a 48-year-old male with a past medical history of diabetes mellitus type 2 ose-sybhsva-fewakszxq (on metformin) who was admitted on 03/26/2024 for working diagnosis of CHF. #CHF, Severe Systolic Dysfunction HFrEF 30-35% (03/26/2024) Etiology: Given patient's dyspnea, orthopnea, paroxysmal orthopnea and history of lower pedal edema consider congestive heart failure as likely diagnosis. Although BNP is 118, given patient's body habits likely lowered BNP. DDx: EKG showed sinus tachycardia with Q waves less likely ST elevation, troponins within range, denied chest pain versus PE D-dimer within normal range. Possible NSTEMI type I. Versus pericarditis given low voltage QRS complex but likely secondary to body habitus. Diagnostics: -Echo (03/26/2024): Dilated LV, Severe systolic dysfunction, moderate global hypokinesis. HFrEF 30-35%. Pulmonary artery appears normal. -Cxr (03/28/2024): Mild heart failure, Mild enlargement cardiac contous, prominent vascular congestion-including central vascular engorgement -TSH: 1.75 -Lipid Panel: Triglycerides 88, Cholesterol 147, LDL 73, HDL 56 -total cholesterol 147 =73 LDL+HDL 56 (Triglycerides 88*0.2) -Wt (03/28/2024): 109.344, Balance (03/27/2024) -1200 NYHA Class:likely IV ASCVD : 3.4% of strok or MA in next 10 years, consider high intensity stat given diabetes risk Plan: -Aspirin 81 mg QDay -Start Atorvastatin 40 mg HS on 03/29/2024, given ASCVD risk -Lasix 20 mg IVP BID, starting 03/27/2024 (received a total of 80 mg IV lasix in ER) -->03/28/2024 Lasix 20 mg IVP QDay given soft blood pressure & improving edema -Work towards Guideline Directed Medical Therapy, given soft blood pressure holding off beta blockers, pending Cardiology recs . possibly SGLT-2 given if soft blood pressure continues and diabetes mellitus type 2 -K>4 and Mg >2 -SpO <90%, support PRN -Daily Weights, Strict Ins and Outs, Fluid Striction (1800 ml) -Cardiology Consulted, Dr. Lyles, appreciate recommendations #Diabetes Mellitus Type II, Non-insulin Dependent #Psuedo-Hypernatremia Patient has a past medical history of diabetes mellitus type 2 hzj-ersqvmf-fcpmeavsw who nonadherent metformin (cannot recall dosage) and came in with an elevated glucose of 446. Given regular insulin 6 units. Upon admission administered 15 units of glargine x 1 and started on sliding scale. Diagnostics: -(03/26/2024) Corrected sodium for glucose -->139 -A1c 14.0 -(03/26/2024) Glucose 446 (03/28/2024) 76 -Microalbumin/Cr Ratio 56 (H), Urine Creat Microalbumin 98, Urine Random Microalbumin 55 Plan -Lantus 15 units X1 on floors -Lantus 15 HS PAT start tonight 03/26/2024-->Lantus 22 -Sliding Scale Lispro -Follow Fasting Blood AM #Transaminitis Etiology: cardiomyopathy maybe secondary cause of transaminitis from ischemia given new diagnosis of severe systolic dysfunciton. DDx: MASH less likely given Liver US vs Less likely infectious given patient's career but less likley given negative Hep panel. Diagnostics: -Liver US (03/28/2024): Normal gallbladder, Normal common bile duct, LIver 16.3 cm no focal liver lesions. Normal hepatopedal portal venous flow. -(03/28/2024) AST 95 ALT 90 Alkaline Phosphatase 223 -Hepatitis Panel Negative Plan: -Consider GGT -Consider Iron panel given elevated Hct, Hgb #Polycythemia Etiology: Polycythemia likely secondary to decreased EF, compensating for decreased cardiac output. DDX: Consider mutation vs Less likely secondary to pulmonary HTN given patient's echo showing normal pressure Plan -No acute intervention -consider Iron Panel with AM labs -Consider EPO, Alexandre 2 as outpatient, and sleep apnea study Health Maintenance: Disp: Pt is currently admitted to floors for further management of working diagnosis, awaiting echo. FEN: Diet Carb Consistent Low DVT: on subQ heparin Code: Full Code - The patient's plan was discussed with attending Dr. Dugan and senior residents Dr. Radha Gonzalez MD PGY1 Internal Medicine Attending Provider Attestation/Addendum I have discussed and was present for the essential components of the history, physical examination, diagnosis, and treatment plan with the resident. I agree with the patient's care as documented by the resident and amended herein by me. Titus Dugan, DO. Although this document has been carefully reviewed, there may still be some phonetic and other typographical errors. These errors are purely grammatical due to imperfections in the software program and should not be construed in any way to compromise the substance of the patient's medical care during this visit.
[2024-03-28 17:00] LABS: HIV (1&2) Antibody Rapid Non-Reactive
[2024-03-28] MEDS: traZODone HCL 50 MG TABLET PO (20:21)
[2024-03-28] MEDS: INSULIN GLARGINE (Lantus) 5 UNIT/0.05 ML (PER 5 UNITS) 22 UNIT SC (20:22)
[2024-03-29] VITALS (8 sets, daily range): BP systolic 82–121; BP diastolic 60–85; PULSE 88–100; RESP 16–24; TEMP 36–36.3; O2SAT 94–99; BMI 34.2
[2024-03-29] MEDS: MELATONIN 3 MG TABLET PO (04:13)
[2024-03-29 06:17] LABS: Basophils # (Auto) 0.1 Thou/mm3 (0.0-0.2); Basophils % (Auto) 1 % (0-2.5); Eosinophils # (Auto) 0.2 Thou/mm3 (0.0-0.5); Eosinophils % (Auto) 3 % (0-10); Hematocrit 50.2 % (41.0-53.0); Hemoglobin 16.6 g/dL (13.5-16.0); Immature Granulocytes % (Auto) 1 % (0-0); Immature Granulocytes Auto 0.04 Thou/mm3 (0.00-0.00); Lymphocytes # (Auto) 2.6 Thou/mm3 (1.0-4.8); Lymphocytes % (Auto) 31 % (10-50); Mean Corpuscular HGB Conc 33.1 g/dl (31.0-37.0); Mean Corpuscular Hemoglobin 28.5 pg (25.0-35.0); Mean Corpuscular Volume 86 fL (80-100); Monocytes # (Auto) 0.7 Thou/mm3 (0.0-0.8); Monocytes % (Auto) 8 % (0-12); Neutrophils # (Auto) 4.7 Thou/mm3 (1.8-7.7); Neutrophils % (Auto) 56 % (37-80); Nucleated Red Blood Cell % 0 /100 WBC (0); Platelet Count 262 Thou/mm3 (140-440); RDW Standard Deviation 42.4 fL (35.1-43.9); Red Blood Count 5.83 Miln/mm3 (4.50-5.90); White Blood Count 8.3 Thou/mm3 (3.8-10.6)
[2024-03-29 06:53] LABS: Alanine Aminotransferase 99 U/L (10-49); Albumin, Serum 3.5 gm/dL (3.5-5.0); Albumin/Globulin Ratio 1.7 (1.2-2.2); Alkaline Phosphatase 234 U/L (46-116); Anion Gap 4 (7-16); Aspartate Amino Transferase 89 U/L (0-34); BUN/Creatinine Ratio 18 Ratio (12-20); Bilirubin,Total 0.9 mg/dL (0.3-1.2); Blood Urea Nitrogen 18 mg/dL (9-23); Calcium 8.8 mg/dL (8.3-10.6); Calcium (Corrected) 9.2 mg/dL (8.5-10.1); Carbon Dioxide 32.7 mMol/L (20.0-31.0); Chloride 101 mMol/L (98-107); Globulin 2.1 gm/dL (2.3-3.5); Glucose 101 mg/dL (74-106); Magnesium 1.9 mg/dL (1.6-2.6); Osmolality,Calculated 277 (275-295); Potassium 3.6 mMol/L (3.4-5.1); Sodium 138 mMol/L (136-145); Total Protein 5.6 gm/dL (5.7-8.2); eGFR > 60 See Note
[2024-03-29] MEDS: FUROSEMIDE INJ 10 MG/ML VIAL 2 ML 20 MG IVP (08:48)
[2024-03-29] MEDS: HEPARIN SOD INJ 5000 UNIT/ML VIAL SC (08:49)
[2024-03-29] MEDS: ASPIRIN EC 81 MG TABEC PO (08:49)
[2024-03-29] MEDS: INSULIN LISPRO (AdmeLOG) 1 UNIT/0.01 ML UNIT SC ×2 (09:02→11:57)
--- NOTE | 2024-03-29 09:14 | PD.IMCONS ---
HPI Data of Consult Requesting Physician: Antoine Dugan DO Primary Care Provider: Kristopher Burnett MD Consult Narrative History of present illness: This is a 48 yrs old with no significant PMX pt was seen in the ER with SOB / RODRIGEZ/ PND/ Orthopnoea pt denies chest pain troponin negative EKG no acute changes old anterior UT pt was known diabetes but non compliant cc:: cc: Antoine Dugan DO Meds Home Medications and Allergies Allergies Allergy/AdvReac Type Severity Reaction Status Date / Time No Known Allergies Allergy Verified 03/26/24 06:20 Exam Vital Signs Temp Pulse Resp BP Pulse Ox O2 Del Method O2 Flow Rate 96.8 F 94 18 98/70 97 Nasal Cannula 1 03/29/24 07:50 03/29/24 09:05 03/29/24 09:05 03/29/24 08:48 03/29/24 09:05 03/29/24 07:50 03/29/24 09:05 Routine HEENT Exam Head: Present normocephalic and atraumatic Eye: Present EOMI and PERRL ENT: Present mucous membranes moist Routine Neck Exam Neck: Present supple and trachea midline Routine Respiratory Exam Respiratory: Present chest non-tender, lungs clear, normal breath sounds and no resp distress Routine Cardiovascular Exam Cardiovascular: Present RRR Routine Abdominal Exam Abdominal: Present soft and normoactive bowel sounds Routine Extremities Exam Extremities: Present full ROM Routine Skin Exam Skin: Present intact, dry and warm Routine Neurological Exam Neurological: Present alert, oriented X3 and CN II-XII intact Routine Psychiatric Exam Psychiatric: Present normal affect and normal thought process Results Labs 03/29/24 05:38 03/29/24 05:38 Labs: Short CBC 03/29/24 Range/Units 05:38 WBC 8.3 (3.8-10.6) Thou/mm3 Hgb 16.6 H (13.5-16.0) g/dL Hct 50.2 (41.0-53.0) % Plt Count 262 (140-440) Thou/mm3 BMP 03/29/24 05:38 Sodium 138 Potassium 3.6 Chloride 101 Carbon Dioxide 32.7 H BUN 18 Creatinine 1.0 Glucose 101 Calcium 8.8 Liver Function 03/29/24 Range/Units 05:38 Total Bilirubin 0.9 (0.3-1.2) mg/dL AST 89 H (0-34) U/L ALT 99 H (10-49) U/L Alkaline Phosphatase 234 H (46-116) U/L Albumin 3.5 (3.5-5.0) gm/dL Assessment and Plan Assessment and plan (1) New onset of congestive heart failure: Status: Acute (2) Diabetes 1.5, managed as type 2: Status: Acute (3) Obesity: Status: Acute Additional Assessment & Plan Additional Plan: continue current treatment for heart failure agree with diuretics ; start coreg / spiranolactone as bp tolerates gladis need w/u for ischemia
--- NOTE | 2024-03-29 14:11 | ESDS_ITS ---
<Statement entered by Sean Garcia MD - 03/29/24 15:06> Patient was seen and examined at the bedside. Patient was medically stable to be discharged. He was managed here for new onset HFrEF EF 35% per echo. Most likely ischemic cardiomyopathy given EKG showing Q waves unclear on timeline for developing those on EKG. U tox was negative. Cardiology was consulted and per recommendations patient will be sent on Lasix 20 mg p.o., and carvedilol 3.125 mg twice daily for home. Patient was advised to follow-up with PCP as outpatient and get referral for quality control lab technician to be seen within a week. He was also counseled to continue low-salt diet with fluid restriction up to 1500 cc. He was advised to follow-up with his body weight if more than 2 to 3 pounds of gain to notify quality control lab technician. Additionally, patient had A1c of 14% therefore he was given Lantus 20 units for night scheduled and was advised to check his blood sugars at morning during fasting and with meals. He was also given Baqsimi for hypoglycemia episode if blood sugar drops below 60 mg/dL. All labs and orders were reviewed. I saw and examined the patient, and I agree with current management stated by Dr Carlos MD,PGY1. Plan of care was discussed with the attending physician and resident physician. Disclaimer: Despite multiple revisions, due to the dictation software being used, the document bellow may not be free of grammatical errors including phonetic/typographic errors. However, this does not deter from our commitment to providing health care in the patient's best interest in mind. Dr. Radha MD, PGY 2 Planned Discharge Date 03/29/24 DS: Providers Provider Date of admission: 03/26/24 12:12 Primary care physician: Kristopher Burnett MD Admitting Provider: Ryan Vaughan MD Attending Provider on Admission: Antoine Dugan DO Consults: 03/26/24 20:45 Referral Registered Dietitian Routine Comment: Referral Registered Dietitian Routine Comment: improved control of DM type 2 03/28/24 13:45 Consult to Cardiology Routine Comment: Consulting Provider: Taz Lyles Instructions: possible new onset of CHF 03/29/24 12:06 PT [Referral Physical Therapy] Routine Comment: Physician Instructions: Attending Provider on DC: Kathy Gonzalez MD Discharging Provider: Kathy Gonzalez MD DS: Diagnosis Problem List Completed Was Problem List Reviewed/Reconciled?: Yes Hospital Course Hospital Course Hospital course: Overview: Patient is a 48-year-old male with a past medical history of diabetes mellitus type 2 [id number]-evdwqelhx (on metformin) who was admitted onto the hospital service on 03/26/2024 from the ER for new diagnosis of Congestive Heart Failure management. ER Course: Vitals T97.9, HR 109, RR 19, BP 137/93, SpO2 97% RA CBC (03/26/2024): WBC 9.4, hemoglobin 17.3 (H), Hematocrit 51.8 CMP (03/26/2024): NA 131-->Corrected NA 137, osmolarity, 280, Anion Gap 4, glucose 446, estimated average glucose 355, A1c 14.0 Troponin 0.036, 0.032 BNP 118 Beta-hydroxybutyrate 0.1 UA : glucose + Utox negative Cxr (03/26/2024): Mild heart failure. Mild enlargement cardiac contour Prominent vascular congestion including central vascular engorgement EKG (03/26/2024): Sinus Tachycardia w/ occasional ectopic premature complexes Low QRS voltage, likely Q waves. Less likely ST elevation. Hospital Course: On floors, patient was started as a new diagnosis that congestive heart failure and was started on Lasix 20 mg IV push twice daily and de-escalated to Lasix [address] Lyles, quality control lab technician, for further management of congestive heart failure findings. On echo (03/26/2024) showed dilated left ventricle with severe systolic dysfunction, moderate global hypokinesis. Ejection fraction of 30 to 35%. Pulmonary artery appears normal chest x-ray findings also illustrated mild heart failure within enlargement of cardiac contours and prominent vascular congestion. Lipid panel: Triglycerides 88, cholesterol 147, LDL 77, HDL 56. Patient started on atorvastatin and will continue home dose of atorvastatin upon discharge. Cardiology recommendations to start Coreg 3.125 twice daily and Lasix 20 mg once a day. Going home with home oxygen for support. Diabetes mellitus type 2 dor-rwpjlqd-qeqqfonmw patient was started on long-acting Lantus and will be going home on 20 units of degludec once a day. A1c 14 (03/26/2024). Patient was found to have urine random microalbumin of 55, still within normal range. Liver US showed normal gallbladder, normal common bile duct, and normal hepatopedal portal venous flow. Hepatitis panel negative. Polycythemia noted, consider secondary to decreased ejection fraction of heart versus patients work schedule with poor circadium rhythm. Consdier outpatient Iron panel, EPO, or Alexandre 2 as outpatient. Instructions: -Please start new medication aspirin 81 mg once a day -Please start new medication Carvedilol 3.125 mg tablet twice a day with meals -Please monitor weight, and report an increase weight of 2 lbs over 1 to 2 days to increase Furosemide dose and follow up with Picture Painter or PCP -Please restrict total fluids per day to about 1800 ml (a little less than 2 Liters per day) -Please restrict sodium 2 grams per day -If blood pressure systolic <110 or diastolic blood pressure below <70, please hold Carvedilol -Please start new medication atorvastatin 20 mg tablet at nighttime -Continue Metformin Extended Release 500 mg once per day -Start Degludec (long acting insulin) 20 units once per day. - please check blood sugar in the morning , goal morning blood sugar before meals of 120. - blood sugar goal after meals below 200 -Please take Baqsimi-if blood sugar drops below <70 -Please follow up with Primary Care Provider within 1 to 2 weeks from day of discharge -Please follow up with Picture Painter, Dr. Lyles, and make an appoitment within 1 to 2 weeks from discharge -Please stop ibuprofen 800 mg PO TID PRN -If symptoms worsen, please return to the emergency room. -If you need a provider, [facility], [address], [place] [address]. Disposition: Home w/ home oxygen #CHF, Severe Systolic Dysfunction HFrEF 30-35% (03/26/2024) #Diabetes Mellitus Type II, Non-insulin Dependent #Psuedo-Hypernatremia #Transaminitis #Polycythemia - The patient's plan was discussed with attending Dr. Dugan and senior residents Dr. Radha Gonzalez MD PGY1 Internal Medicine Time Spent with Patient Time attestation: Total time spent providing and/or coordinating discharge services: greater than 35 minutes. Exam Vital Signs Temp Pulse Resp BP Pulse Ox O2 Del Method O2 Flow Rate 96.9 F 93 19 111/84 98 Nasal Cannula 1 03/29/24 12:00 03/29/24 12:00 03/29/24 12:00 03/29/24 12:00 03/29/24 12:00 03/29/24 12:00 03/29/24 12:00 Narrative Exam General Appearance: Alert & Oriented X3, well-nourished male who is lying in bed in no acute distress HEENT: Skull symmetrical and atraumatic. Conjunctivae pink and moist. Pupils equal, round, reactive to light and accommodation (PERRL). External ear without lesion or discharge. Straight, nares patient, mucosa pink, no discharge. No thyroid nodule appreciated. Cardio: Normal Rate and Rhythm with S1 and S2 heart sounds. No murmurs or extra heart sounds auscultated. No bruits on carotid auscultation. No peripheral edema, improved Lungs: Symmetric with good expansion. Chest and back non-tender. Breath sounds vesicular without crackles, wheezing or rhonchi Abdomen: Non-tender, Non-distended, Normal Reactive Bowel Sounds Neuro: Alert, cooperative, oriented to person, place, and time. Speech clear. CN grossly intact. Upper motor strength 5/5 and Lower motor strength 5/5. Sensation intact. Discharge Plan Plan Patient Disposition: HOME (Self Care) Care Plan Goals: Instructions: -Please start new medication aspirin 81 mg once a day -Please start new medication Carvedilol 3.125 mg tablet twice a day with meals -Please monitor weight, and report an increase weight of 2 lbs over 1 to 2 days to increase Furosemide dose and follow up with Picture Painter or PCP -Please restrict total fluids per day to about 1800 ml (a little less than 2 Liters per day) -Please restrict sodium 2 grams per day -If blood pressure systolic <110 or diastolic blood pressure below <70, please hold Carvedilol -Please start new medication atorvastatin 20 mg tablet at nighttime -Continue Metformin 500 mg Extended Release 500 mg once per day -Start Degludec (long acting insulin) 20 units once per day. - please check blood sugar in the morning , goal morning blood sugar before meals of 120. - blood sugar goal after meals below 200 -Please take Baqsimi-if blood sugar drops below <70 -Please follow up with Primary Care Provider within 1 to 2 weeks from day of discharge -Please follow up with Picture Painter, Dr. Lyles, and make an appoitment within 1 to 2 weeks from discharge -Please stop ibuprofen 800 mg PO TID PRN -If symptoms worsen, please return to the emergency room. -If you need a provider, [facility], [address], [place] [address]. Prescriptions/Referrals Prescriptions/Med Rec: New atorvastatin 20 mg Tablet 20 mg PO HS Qty: 30 0RF aspirin 81 mg Tablet,Delayed Release (Dr/Ec) 81 mg PO QDAY Qty: 30 0RF metformin 500 mg tablet extended release 24 hr 500 mg PO QDAY Qty: 30 0RF (DME) pen needle, diabetic 31 gauge x 5/16 needle See Rx Instructions .Route Qty: 100 0RF Rx Instructions: As directed (DME) blood-glucose meter [Blood Glucose Monitoring] Kit See Rx Instructions .Route Qty: 1 2RF Rx Instructions: As directed Baqsimi 3 mg/actuation spray,non-aerosol 3 mg intranasal QDAY Qty: 2 3RF carvedilol 3.125 mg Tablet 3.125 mg PO BIDWM 30 Days Qty: 60 0RF (DME) Blood Pressure Cuff Misc See Rx Instructions .Route Qty: 1 0RF Rx Instructions: As directed insulin degludec 100 unit/mL (3 mL) insulin pen 20 unit subcut QDAY Qty: 15 3RF furosemide [Lasix] 20 mg tablet 20 mg PO QDAY Qty: 30 0RF (DME) FreeStyle Angeline 2 Sensor Kit See Rx Instructions .Route Qty: 1 0RF Rx Instructions: As directed (DME) FreeStyle Angeline 2 [place] Misc See Rx Instructions .Route Qty: 1 0RF Rx Instructions: As directed Discontinued ibuprofen 800 mg tablet 800 mg PO TID PRN (Reason: pain) Qty: 30 0RF Referrals: Kristopher Burnett MD [Primary Care Provider] - Taz Lyles MD [Physician] - Kathy Gonzalez MD [Resident] - Patient/Caregiver Discharge Instructions Education Materials: Heart Failure: Tracking Your Weight, Coping with Heart Failure, My Heart Failure Symptoms Chart Print Language: Italian Stand Alone Forms: Laly Award Info., Patient Portal Info Letter Discharge Order Discharge Orders: Discharge (Routine); Ordered 03/29/24 Ordered By: Lara Lincoln Quality Discharge Quality Measures VTE prophylaxis Attestestation Attestation I have discussed and was present for the essential components of the discharge history, physical examination, diagnosis, and discharge treatment plan with the resident. I agree with the patient's discharge care as documented by the resident and amended herein by me. Titus Dugan DO. The patient understood all discharge instructions, all questions were answered satisfactorily. The patient was instructed to return to the Emergency Department is symptoms worsened or persisted. Patient was stable, afebrile, tolerating p.o. intake and ambulatory at time of discharge. Although this document has been carefully reviewed, there may still be some phonetic and other typographical errors. These errors are purely grammatical due to imperfections in the software program and should not be construed in any way to compromise the substance of the patient's medical care during this visit.
--- NOTE | 2024-03-29 14:31 | PC.SS ---
SS was informed during rounding that patient will be needing home 02. SS submitted inquiry through [employer]. Tommy will be delivering 02 at bedside within 1-2hrs. SS informed patient's nurse Sharita.
--- NOTE | 2024-03-29 17:48 | PC.NURSE ---
Discharge instructions given to the patient and patient's at bedside and both verbalized understanding. O2 concentrator and O2 tank delivered at bedside. Patient on room air with SPO2 of 94%, denies any shortness of breath. Discharged patient with all belongings via w/c.
== END 2024-03-29 17:48 | disposition home or self-care (01) | DRG 291 ==
LOC: SERX 07:34 → SERHOLD 12:14 → S2NX 18:11
PROVIDERS: Nurse Practitioner Family; Student in an Organized Health Care Education/Training Program; Admitting Provider Internal Medicine; Emergency Provider Emergency Medicine; PCP Family Medicine; Visit Provider Student in an Organized Health Care Education/Training Program
DX: I50.21 Acute systolic (congestive) heart failure (principal); J96.01 Acute respiratory failure with hypoxia; E11.9 Type 2 diabetes mellitus without complications; D75.1 Secondary polycythemia; E66.9 Obesity, unspecified; Z68.34 Body mass index [BMI] 34.0-34.9, adult; I25.2 Old myocardial infarction; I25.5 Ischemic cardiomyopathy; Z91.148 Patient's other noncompliance with medication regimen for other reason; Z79.84 Long term (current) use of oral hypoglycemic drugs; Z87.01 Personal history of pneumonia (recurrent); Z79.4 Long term (current) use of insulin; Z79.82 Long term (current) use of aspirin; Z79.899 Other long term (current) drug therapy
CPT/HCPCS: 36415; 71046; 76705; 80053; 80061; 80074; 80307; 81001; 82010; 82043; 82570; 83036; 83735; 83880; 84100; 84443; 84484; 85025; 85379; 86703; 87400; 87811; 93005; 93306; 96372; 96374; 99285; J1643; J1815; J1940; J2060; J2405; A9270; J1644

== ENCOUNTER 2024-04-07 13:03 | Emergency (ER) | payer BC, SELFPAY ==
[2024-04-07 13:04] VITALS: BMI 37.3
[2024-04-07 14:07] VITALS: BP 126/86; PULSE 100; RESP 18; TEMP 37.9; O2SAT 97
--- NOTE | 2024-04-07 14:16 | EKG_ITS ---
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: : 1975 Requested By: Teresita Cummins ([facility]) Heriberto Order Number: [id number] Reading MD: Teresita Cummins ([facility]) Heriberto Measurements Intervals [place] Rate: 100 P: 61 VT: 199 QRS: 257 QRSD: 81 T: 0 QT: 349 QTc: 451 Interpretive Statements SINUS TACHYCARDIA MARKED RIGHT AXIS DEVIATION [QRS AXIS > 100] LOW QRS VOLTAGE [QRS DEFLECTION < 0.5/1.0 mV IN LIMB/CHEST LEADS] INFERIOR MYOCARDIAL INFARCTION , PROBABLY OLD [40+ ms Q WAVE AND/OR ST/T ABNORMALITY IN II/aVF] ANTEROSEPTAL MYOCARDIAL INFARCTION , OF INDETERMINATE AGE [40+ ms Q WAVE IN V1-V4] Compared to ECG 03/26/2024 06:53:55 Right-axis deviation now present Myocardial infarct finding still present /store/S0/[id number]/[id number].pdf
--- NOTE | 2024-04-07 14:16 | XR_ITS ---
Examination: AP lateral chest 2 views Technique one AP lateral chest 2 views Exam date and time: April 07, 2024 1454 hours Comparison March 26, 2024 INDICATIONS: Chest pain beginning 3 days ago. FINDINGS: Mild CHF Mild enlargement cardiac contour Prominent vascular congestion with early basilar edema Fluid in the fissures on the lateral view IMPRESSION: Mild CHF
--- NOTE | 2024-04-07 14:17 | PD.EDRME ---
Rapid Medical Screening Exam RME Arrival date/time: 04/07/24 13:03 48-year-old male presents to the emergency department with complaints of worsening shortness of breath and BLE. Recent diagnosis of CHF. I have greeted and performed a focused initial assessment of this patient. Initial appropriate labs ordered at this time. A comprehensive ED assessment and evaluation of the patient and analysis of all test and completion of medical decision making process will be conducted by additional ED provider. Chief Complaint: Shortness of Breath/Dyspnea Time Seen by Provider: 04/07/24 13:32 Vital signs: Vital Signs Temperature 100.3 F 04/07/24 14:07 Pulse Rate 100 04/07/24 14:07 Respiratory Rate 18 04/07/24 14:07 Blood Pressure 126/86 H 04/07/24 14:07 Pulse Oximetry (%) 97 04/07/24 14:07 Oxygen Delivery Method Room Air 04/07/24 14:07
[2024-04-07 15:36] LABS: Basophils # (Auto) 0.1 Thou/mm3 (0.0-0.2); Basophils % (Auto) 0 % (0-2.5); Eosinophils # (Auto) 0.2 Thou/mm3 (0.0-0.5); Eosinophils % (Auto) 2 % (0-10); Hematocrit 51.7 % (41.0-53.0); Immature Granulocytes % (Auto) 1 % (0-0); Immature Granulocytes Auto 0.11 Thou/mm3 (0.00-0.00); Lymphocytes # (Auto) 1.2 Thou/mm3 (1.0-4.8); Lymphocytes % (Auto) 11 % (10-50); Mean Corpuscular HGB Conc 32.9 g/dl (31.0-37.0); Mean Corpuscular Hemoglobin 28.2 pg (25.0-35.0); Mean Corpuscular Volume 86 fL (80-100); Monocytes # (Auto) 1.3 Thou/mm3 (0.0-0.8); Monocytes % (Auto) 12 % (0-12); Neutrophils # (Auto) 8.3 Thou/mm3 (1.8-7.7); Neutrophils % (Auto) 74 % (37-80); Nucleated Red Blood Cell % 0 /100 WBC (0); Platelet Count 260 Thou/mm3 (140-440); RDW Standard Deviation 42.4 fL (35.1-43.9); Red Blood Count 6.03 Miln/mm3 (4.50-5.90); White Blood Count 11.2 Thou/mm3 (3.8-10.6)
[2024-04-07 15:57] LABS: INR 1.1 (0.9-1.3); Prothrombin Time 11.9 Seconds (9.0-12.2)
[2024-04-07 16:09] LABS: Alanine Aminotransferase 122 U/L (10-49); Albumin, Serum 3.7 gm/dL (3.5-5.0); Albumin/Globulin Ratio 1.5 (1.2-2.2); Alkaline Phosphatase 378 U/L (46-116); Anion Gap 6 (7-16); Aspartate Amino Transferase 79 U/L (0-34); B-Type Natriuretic Peptide 290 pg/mL (0-100); BUN/Creatinine Ratio 16 Ratio (12-20); Bilirubin,Total 1.2 mg/dL (0.3-1.2); Blood Urea Nitrogen 19 mg/dL (9-23); Calcium 9.1 mg/dL (8.3-10.6); Calcium (Corrected) 9.3 mg/dL (8.5-10.1); Carbon Dioxide 28.7 mMol/L (20.0-31.0); Chloride 96 mMol/L (98-107); Creatinine (Component) 1.2 mg/dL (0.6-1.3); Estimated Creatinine Clearance 94.8 mL/min (>60); Globulin 2.5 gm/dL (2.3-3.5); Lipase 31 U/L (12-53); Magnesium 1.9 mg/dL (1.6-2.6); Osmolality,Calculated 281 (275-295); Potassium 4.9 mMol/L (3.4-5.1); Sodium 131 mMol/L (136-145); Total Protein 6.2 gm/dL (5.7-8.2); Troponin I 0.022 ng/mL (0.0-0.045); eGFR > 60 See Note
[2024-04-07 16:13] LABS: Glucose 412 mg/dL (74-106)
[2024-04-07 16:27] VITALS: BP 117/85; PULSE 99; RESP 18; TEMP 36.7; O2SAT 98
--- NOTE | 2024-04-07 19:40 | PC.NURSE ---
CALLED PT IN ER LOBBY AND OUTSIDE OF ER AND NO ANSWER AT THIS TIME.
--- NOTE | 2024-04-07 20:28 | PC.NURSE ---
CALLED PT IN ER LOBBY AND OUTSIDE OF ER AND NO ANSWER AT THIS TIME.
--- NOTE | 2024-04-07 20:47 | PC.NURSE ---
CALLED PT IN ER LOBBY AND OUTSIDE OF ER AND NO ANSWER AT THIS TIME.
== END 2024-04-07 20:47 | disposition left against medical advice (07) ==
PROVIDERS: Nurse Practitioner Primary Care; Emergency Provider Emergency Medicine; PCP Family Medicine
DX: R06.02 Shortness of breath (principal); R07.9 Chest pain, unspecified; R00.0 Tachycardia, unspecified; I50.9 Heart failure, unspecified; Z53.29 Procedure and treatment not carried out because of patient's decision for other reasons
CPT/HCPCS: 36415; 71045; 80053; 83690; 83735; 83880; 84484; 85025; 85610; 93005; 99281

== ENCOUNTER 2024-04-15 08:47 | Outpatient (AMB) | payer BC, SELFPAY ==
[2024-04-15 08:55] VITALS: BP 110/74; PULSE 95; RESP 18; TEMP 36.3; O2SAT 95; BMI 40.0
--- NOTE | 2024-04-15 08:55 | ACNOTE_ITS ---
Vital Signs 04/15/24 08:55 Height 1.78 m Height Method Stated Weight 126.666 kg Weight Measurement Method Standing Scale BMI 40.0 BP 110/74 Blood Pressure Source Automatic Cuff Blood Pressure Location Left Upper Arm Position Sitting Respiration 18 Pulse 95 Pulse Source Monitor Temp 97.3 F Temp Source Oral Pulse Oximetry (%) 95 Oxygen Delivery Method Room Air Allergies/Meds Allergies & Medications Allergies No Known Allergies Allergy (Verified 04/15/24 08:56) Medication Reconciliation aspirin 81 mg tablet,delayed release 81 mg PO QDAY #30 tabs 03/29/24 [Rx Confirmed 04/15/24] atorvastatin 20 mg tablet 20 mg PO HS #30 tabs 03/29/24 [Rx Confirmed 04/15/24] blood-glucose meter (Blood Glucose Monitoring kit) #1 ea 03/29/24 [Rx Confirmed 04/15/24] carvedilol 3.125 mg tablet 3.125 mg PO BIDWM 30 days #60 tabs 03/29/24 [Rx Confirmed 04/15/24] flash glucose scanning reader (Soma WaterStyle Angeline 2 [place]) #1 ea 03/29/24 [Rx Confirmed 04/15/24] flash glucose sensor (FreeStyle Angeline 2 Sensor kit) #1 ea 03/29/24 [Rx Confirmed 04/15/24] glucagon 3 mg/actuation nasal spray (Baqsimi) 3 mg intranasal QDAY #2 ea 03/29/24 [Rx Confirmed 04/15/24] metformin 500 mg tablet,extended release 24 hr 500 mg PO QDAY #30 tabs 03/29/24 [Rx Confirmed 04/15/24] miscellaneous medical supply (Blood Pressure Cuff) #1 ea 03/29/24 [Rx Confirmed 04/15/24] pen needle, diabetic 31 gauge x 5/16 #100 ea 03/29/24 [Rx Confirmed 04/15/24] insulin glargine 100 unit/mL (3 mL) subcutaneous pen (Lantus Solostar U-100 Insulin) 20 unit (0.2 mL) subcut QPM #15 mL 03/30/24 [Rx Confirmed 04/15/24] empagliflozin 10 mg tablet (Jardiance) 10 mg PO QDAY 1 month #30 tabs 04/15/24 [Rx] furosemide 40 mg tablet (Lasix) 40 mg PO BID 1 month #60 tabs 04/15/24 [Rx] lisinopril 2.5 mg tablet 2.5 mg PO QDAY 1 month #30 tabs 04/15/24 [Rx] sertraline 50 mg tablet 50 mg PO QDAY 1 month #30 tabs 04/15/24 [Rx] MA Intake Visit Data Collection New Patient or Established: Established Patient (seen at [facility] within 3 years) Seen by Clinical Staff ONLY (RN/MA): No Pain Present Currently: No Pain scale:: 0 Pain Scale Used: [place]-Simon/Numerical Churn Drill Operator Required: No Do You Feel Safe at Home: Yes Authorities Contacted: N/A Smoking Status Smoking Status: Never smoker Immunization / Flu Flu Vaccine in the Last 12 Months: No Flu Vaccine Exclusion Criteria: Refused by Patient Past Medical History Past Medical History NEUROLOGIC: Negative Neurological Disorders CARDIAC: Negative Cardiac Disorders or Congestive Heart Failure RESPIRATORY: Negative Chronic Obstructive Pulmonary Disease (COPD) GASTROINTESTINAL: Negative Gastrointestinal Disorders GENITOURINARY: Positive Genitourinary Disorders and Inguinal Hernia (Je); Negative Renal Disease ENDOCRINE: Positive Endocrine Disorders and Diabetes Mellitus Type 2; Negative Diabetes Mellitus Type 1 HEMATOLOGIC: Negative Blood Disorders OTHER HISTORY: Negative Hospitalization, Autoimmune Disease, Down Syndrome, Developmental Delay, Shingles, Falls, Blood Transfusions, Anesthesia Reactions, MRSA, VRSA, Vancomycin-Resistant Enterococci, Human Immunodeficiency Virus (HIV), Chicken Pox, Measles, Mumps, Rubella (Samo[place] Measles), Pertussis, Clostridium Difficile or Cancer Social History SMOKING STATUS: Smoking status: Never smoker SECOND HAND EXPOSURE: second hand exposure: No ALCOHOL: Alcohol Intake: Current ALCOHOL FREQUENCY: Alcohol Intake Frequency: holidays/special occasions only HOUSING: Housing: House LIVES WITH: Lives With: Family and Spouse Patient Portal Yael Social History Living Situation History Housing: House Housing Other:: Lives with . Tobacco History Smoking Status: Never smoker Second Hand Smoke Exposure: No Alcohol History Alcohol Intake: Current Alcohol Intake Frequency: holidays/special occasions only Domestic Abuse History Do You Feel Safe at Home: Yes Review of Systems Report any current symptoms Only answer those that you have currently: Past Medical History Past Medical History Have you ever been diagnosed with any of the following: Cardiology Problems Congestive Heart Failure: No Respiratory Problems Chronic Obstructive Pulmonary Disease (COPD): No Genital/Urinary Problems Renal Disease: No Inguinal Hernia: Yes (Je) Endocrine Problems Diabetes Mellitus Type 1: No Diabetes Mellitus Type 2: Yes Other Problems Hospitalization: No Autoimmune Disease: No Down Syndrome: No Developmental Delay: No Shingles: No Falls: No Blood Transfusions: No Anesthesia Reactions: No MRSA: No VRSA: No Vancomycin-Resistant Enterococci: No Human Immunodeficiency Virus (HIV): No Chicken Pox: No Measles: No Mumps: No Rubella (Samoan Measles): No Pertussis: No Clostridium Difficile: No Cancer: No Assessment & Plan Diagnosis / Problem List Orders: Orders Basic Metabolic Panel Today E13.9 - Other specified diabetes mellitus without complications, E66.9 - Obesity, unspecified, I50.9 - Heart failure, unspecified Additional Assessment Attending note: I, Julien Rinaldi MD, attest that I was physically present for the salcido port ions of the service and evaluated the patient with the resident and I reviewed and discussed the case with the resident and agree with the resident's findings and plans of care as documented above. New patient to clinic. Recent admission for new onset of congestive heart failure. Echocardiogram showed dilated left ventricle with severe systolic dysfunction and moderate global hypokinesis with ejection fraction of 30 to 35%. Renal function still okay. Patient is insulin- dependent diabetic with hemoglobin A1c of 14. Started on insulin glargine along with metformin. Noted on admission transaminitis, mild. Ultrasound of liver within normal limits. He was started on atorvastatin 20 mg nightly. Microalbumin creatinine ratio of 56, should be on ANDREW or ARB. Patient also noted to be mildly polycythemic. Today, will need referral to Dr Lyles for follow-up with cardiology, likely outpatient stress testing or heart catheterization. Would add low-dose ANDREW inhibitor if blood pressure will tolerate. Would add SGLT2 for cardiac and glucose benefit. Follow-up labs in 2 weeks. Given patient's BMI of 40 on vitals today, may be candidate for GLP-1 for glucose benefit as well as weight reduction. Consider workup for obstructive sleep apnea given polycythemia. Julien Rinaldi MD Physician Billing New Patient New Patient: E/M Level 4-CPT 49409 Office Procedures [facility] Level of Care Nursing/Assessment Patient Status: Established Patient Nursing Assessment/Reassessment: Medication Reconciliation, Update PMH in EMR and Vital Signs Coordination of Care: Complex Care and Chronic Disease 1-5, Consent,records obtained, informed consent, Education Simp Pt/Fam, Lab and Imaging orders and Staff clarify orders Established Patient Charge Established Patient Point Assignment: 100 Established Patient Point Charge: EP Level 3 (80-115)
== END 2024-04-15 10:25 | disposition home or self-care (01) ==
LOC: HODAHC 08:47
PROVIDERS: Supervising Provider Internal Medicine; Visit Provider Student in an Organized Health Care Education/Training Program
DX: E13.9 Other specified diabetes mellitus without complications (principal); E66.9 Obesity, unspecified; Z68.41 Body mass index [BMI] 40.0-44.9, adult; I50.9 Heart failure, unspecified
CPT/HCPCS: 99213; G0463

== ENCOUNTER → 2024-04-27 | Outpatient (CLI) | payer BC, SELFPAY ==
[2024-04-27 08:40] LABS: Anion Gap 5 (7-16); BUN/Creatinine Ratio 19 Ratio (12-20); Blood Urea Nitrogen 19 mg/dL (9-23); Calcium 9.6 mg/dL (8.3-10.6); Carbon Dioxide 33.4 mMol/L (20.0-31.0); Chloride 101 mMol/L (98-107); Glucose 201 mg/dL (74-106); Osmolality,Calculated 285 (275-295); Potassium 4.6 mMol/L (3.4-5.1); Sodium 139 mMol/L (136-145); eGFR > 60 See Note
== END | disposition home or self-care (01) ==
LOC: COPL 07:45
PROVIDERS: PCP Student in an Organized Health Care Education/Training Program; Referring Provider Student in an Organized Health Care Education/Training Program; Visit Provider Student in an Organized Health Care Education/Training Program
DX: E66.9 Obesity, unspecified (principal); Z13.9 Encounter for screening, unspecified; I50.9 Heart failure, unspecified
CPT/HCPCS: 36415; 80048

== ENCOUNTER 2024-04-29 13:10 | Outpatient (AMB) | payer BC, SELFPAY ==
[2024-04-29 13:17] VITALS: BP 120/76; PULSE 84; RESP 18; TEMP 36.3; O2SAT 92; BMI 35.4
--- NOTE | 2024-04-29 13:17 | PD.RESCLINIC ---
Vital Signs 04/29/24 13:17 Height 1.78 m Height Method Stated Weight 112.037 kg Weight Measurement Method Standing Scale BMI 35.4 BP 120/76 Blood Pressure Source Automatic Cuff Blood Pressure Location Left Upper Arm Position Sitting Respiration 18 Pulse 84 Pulse Source Monitor Temp 97.3 F Temp Source Oral Pulse Oximetry (%) 92 L Oxygen Delivery Method Room Air Allergies/Meds Allergies & Medications Allergies No Known Allergies Allergy (Verified 05/20/24 14:20) Medication Reconciliation blood-glucose meter (Blood Glucose Monitoring kit) #1 ea 03/29/24 [Rx Confirmed 05/20/24] flash glucose scanning reader (FreeStyle Angeline 2 [place]) #1 ea 03/29/24 [Rx Confirmed 05/20/24] glucagon 3 mg/actuation nasal spray (Baqsimi) 3 mg intranasal QDAY #2 ea 03/29/24 [Rx Confirmed 05/20/24] miscellaneous medical supply (Blood Pressure Cuff) #1 ea 03/29/24 [Rx Confirmed 05/20/24] aspirin 81 mg tablet,delayed release 81 mg PO QDAY #30 tabs 05/20/24 [Rx] atorvastatin 20 mg tablet 20 mg PO HS #30 tabs 05/20/24 [Rx] empagliflozin 10 mg tablet (Jardiance) 10 mg PO QAM #30 tabs 05/20/24 [Rx] flash glucose sensor (FreeStyle Angeline 2 Sensor kit) #6 ea 05/20/24 [Rx] furosemide 40 mg tablet (Lasix) 40 mg PO BID 1 month #60 tabs 05/20/24 [Rx] insulin glargine 100 unit/mL (3 mL) subcutaneous pen (Lantus Solostar U-100 Insulin) 20 unit (0.2 mL) subcut QPM #15 mL 05/20/24 [Rx] insulin lispro 100 unit/mL subcutaneous pen 3 unit (0.03 mL) subcut TID #15 mL 05/20/24 [Rx] lisinopril 5 mg tablet 5 mg PO QDAY #90 tabs 05/20/24 [Rx] metformin 500 mg tablet,extended release 24 hr 500 mg PO QDAY #30 tabs 05/20/24 [Rx] pen needle, diabetic 31 gauge x 5/16 #100 ea 05/20/24 [Rx] sertraline 50 mg tablet 50 mg PO QDAY 1 month #30 tabs 05/20/24 [Rx] MA Intake Visit Data Collection New Patient or Established: Established Patient (seen at [facility] within 3 years) Seen by Clinical Staff ONLY (RN/DAVID): No Pain Present Currently: No Pain scale:: 0 Pain Scale Used: Easton-Simon/Numerical Tin Plater Required: No PCP or OBGYN visit in last 3 months: Yes Hx Now: No Do You Feel Safe at Home: Yes Authorities Contacted: N/A Smoking Status Smoking Status: Never smoker Immunization / Flu Flu Vaccine in the Last 12 Months: No Flu Vaccine Exclusion Criteria: No Exclusion Criteria Past Medical History Past Medical History NEUROLOGIC: Negative Neurological Disorders CARDIAC: Negative Cardiac Disorders or Congestive Heart Failure RESPIRATORY: Negative Chronic Obstructive Pulmonary Disease (COPD) GASTROINTESTINAL: Negative Gastrointestinal Disorders GENITOURINARY: Positive Genitourinary Disorders and Inguinal Hernia (Je); Negative Renal Disease ENDOCRINE: Positive Endocrine Disorders and Diabetes Mellitus Type 2; Negative Diabetes Mellitus Type 1 HEMATOLOGIC: Negative Blood Disorders OTHER HISTORY: Negative Hospitalization, Autoimmune Disease, Down Syndrome, Developmental Delay, Shingles, Falls, Blood Transfusions, Anesthesia Reactions, MRSA, VRSA, Vancomycin-Resistant Enterococci, Human Immunodeficiency Virus (HIV), Chicken Pox, Measles, Mumps, Rubella (Sammarinese Measles), Pertussis, Clostridium Difficile or Cancer Social History SMOKING STATUS: Smoking status: Never smoker SECOND HAND EXPOSURE: second hand exposure: No ALCOHOL: Alcohol Intake: Current ALCOHOL FREQUENCY: Alcohol Intake Frequency: holidays/special occasions only HOUSING: Housing: House LIVES WITH: Lives With: Family and Spouse Patient Portal Questionaires Social History Living Situation History Housing: House Housing Other:: Lives with . Tobacco History Smoking Status: Never smoker Second Hand Smoke Exposure: No Alcohol History Alcohol Intake: Current Alcohol Intake Frequency: holidays/special occasions only Domestic Abuse History Do You Feel Safe at Home: Yes Review of Systems Report any current symptoms Only answer those that you have currently: Past Medical History Past Medical History Have you ever been diagnosed with any of the following: Cardiology Problems Congestive Heart Failure: No Respiratory Problems Chronic Obstructive Pulmonary Disease (COPD): No Genital/Urinary Problems Renal Disease: No Inguinal Hernia: Yes (Je) Endocrine Problems Diabetes Mellitus Type 1: No Diabetes Mellitus Type 2: Yes Other Problems Hospitalization: No Autoimmune Disease: No Down Syndrome: No Developmental Delay: No Shingles: No Falls: No Blood Transfusions: No Anesthesia Reactions: No MRSA: No VRSA: No Vancomycin-Resistant Enterococci: No Human Immunodeficiency Virus (HIV): No Chicken Pox: No Measles: No Mumps: No Rubella (Sammarinese Measles): No Pertussis: No Clostridium Difficile: No Cancer: No History of Present Illness HPI Narrative This is a 48-year-old male with a has a past medical history of type 2 diabetes, recently diagnosed HFrEF with ejection fraction of 30% diagnosed on 03/26/2024. Patient presents to our clinic today for discharge follow-up. Patient was recently admitted to [facility] due to increased shortness of breath upon exertion. Patient was admitted and was diagnosed with new onset heart failure. Cardiology Dr. Lyles was consulted. Echocardiogram done of 03/26/2024 showed an EF of 30% with a dilated left ventricle with severe systolic dysfunction, moderate global hypokinesis. Patient was started on Coreg 3.125 mg twice daily and Lasix 20 mg once daily. While admission patient's A1c was 14. Patient was started on long-acting insulin degludec 20 units, and metformin. Today the patient states that he feels much better. Continues to endorse RODRIGEZ however it has improved significantly. Denies any chest pain, palpitations, lightheadedness, abdominal pain. 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 Sensation grossly intact. Assessment & Plan Diagnosis / Problem List (1) New onset of congestive heart failure: Status: Acute Assessment & Plan: Echo done on 03/26/2025 showed an EF of 30% NYHA class II AHA/ACC class C Plan: GDMT: -coreg 3.125mg BID -lisinopril 2.5mg QD Pending insurance prior auth for: jardiance and entresto Currently following cardiology Dr Lyles. pending addiotional work up Continue lasix 40mg QD until dry weight is achieved plan to start SGLT2i/GLP1a combination, peding prior auth (2) Insulin dependent diabetes mellitus: Status: Acute Assessment & Plan: 04/13 A1c 14 unontrolled Plan: -cont glargine 20 -CGM ordered (3) HTN (hypertension): Status: Acute Qualifiers: Hypertension type: primary hypertension Qualified Code(s): I10 - Essential (primary) hypertension Assessment & Plan: continue as above Plan: continue as above (4) Obesity: Status: Acute Qualifiers: Body mass index: BMI 35.0-35.9 Obesity classification: adult class 2 (BMI 35 - 39.9) Obesity type: due to excess calories Serious obesity comorbidity presence: with serious comorbidity Qualified Code(s): E66.812 - Obesity, class 2; E66.01 - Morbid (severe) obesity due to excess calories; Z68.35 - Body mass index [BMI] 35.0-35.9, adult Assessment & Plan: BMI 35.4 Plan: -plan to orderd chemo or brie will require prior auth Additional Assessment Internal Medicine Attending Note: Case discussed with and agree with note and management plan of Resident Physician as per Resident's Note above. Issues of concern for present visit are as follows: Follow-up visit. Chronic conditions reviewed. Dyspnea on exertion is improving. Diabetes self-care reviewed including diet, exercise, footcare, eye care, insulin injections. Tolerating regimen of basal insulin and metformin. We will attempt to get the patient a continuous glucose monitor. We are waiting prior authorization on an SGLT2 or GLP-1. Patient to follow-up with cardiology regarding congestive heart failure. We will continue diuresis with the current dose of furosemide, along with carvedilol and lisinopril. Would add SGLT2 once prior authorization is obtained. Patient has lost 14 kg since last visit, much of this likely water weight. Would benefit from GLP-1 for weight loss. Follow-up in 2 weeks. Julien Rinaldi MD Physician Billing Established Patient Established Patient: E/M Level 3-CPT 82696 Office Procedures [facility] Level of Care Nursing/Assessment Patient Status: Established Patient Nursing Assessment/Reassessment: Medication Reconciliation, Update PMH in EMR and Vital Signs Coordination of Care: Complex Care and Chronic Disease 1-5, Consent,records obtained, informed consent, Education Simp Pt/Fam, Lab and Imaging orders and Staff clarify orders Established Patient Charge Established Patient Point Assignment: 100 Established Patient Point Charge: EP Level 3 (80-115)
== END 2024-04-29 14:00 | disposition home or self-care (01) ==
LOC: HODAHC 13:10
PROVIDERS: PCP Student in an Organized Health Care Education/Training Program; Referring Provider Student in an Organized Health Care Education/Training Program; Supervising Provider Internal Medicine; Visit Provider Student in an Organized Health Care Education/Training Program
DX: I11.0 Hypertensive heart disease with heart failure (principal); I50.9 Heart failure, unspecified; E11.9 Type 2 diabetes mellitus without complications; E66.812 Obesity, class 2; Z68.35 Body mass index [BMI] 35.0-35.9, adult
CPT/HCPCS: 99213; G0463

== ENCOUNTER 2024-05-20 14:06 | Outpatient (AMB) | payer BC, SELFPAY ==
--- NOTE | 2024-05-20 14:17 | PD.RESCLINIC ---
Vital Signs 05/20/24 14:18 Height 1.78 m Height Method Stated Weight 100.017 kg Weight Measurement Method Standing Scale BMI 31.6 BP 137/85 H Blood Pressure Source Automatic Cuff Blood Pressure Location Left Upper Arm Position Sitting Respiration 18 Pulse 69 Pulse Source Monitor Temp 98.3 F Temp Source Oral Pulse Oximetry (%) 95 Oxygen Delivery Method Room Air Allergies/Meds Allergies & Medications Allergies No Known Allergies Allergy (Verified 05/20/24 14:20) Medication Reconciliation blood-glucose meter (Blood Glucose Monitoring kit) #1 ea 03/29/24 [Rx Confirmed 05/20/24] flash glucose scanning reader (FreeStyle Angeline 2 [place]) #1 ea 03/29/24 [Rx Confirmed 05/20/24] glucagon 3 mg/actuation nasal spray (Baqsimi) 3 mg intranasal QDAY #2 ea 03/29/24 [Rx Confirmed 05/20/24] miscellaneous medical supply (Blood Pressure Cuff) #1 ea 03/29/24 [Rx Confirmed 05/20/24] aspirin 81 mg tablet,delayed release 81 mg PO QDAY #30 tabs 05/20/24 [Rx] atorvastatin 20 mg tablet 20 mg PO HS #30 tabs 05/20/24 [Rx] empagliflozin 10 mg tablet (Jardiance) 10 mg PO QAM #30 tabs 05/20/24 [Rx] flash glucose sensor (FreeStyle Angeline 2 Sensor kit) #6 ea 05/20/24 [Rx] furosemide 40 mg tablet (Lasix) 40 mg PO BID 1 month #60 tabs 05/20/24 [Rx] insulin glargine 100 unit/mL (3 mL) subcutaneous pen (Lantus Solostar U-100 Insulin) 20 unit (0.2 mL) subcut QPM #15 mL 05/20/24 [Rx] insulin lispro 100 unit/mL subcutaneous pen 3 unit (0.03 mL) subcut TID #15 mL 05/20/24 [Rx] lisinopril 5 mg tablet 5 mg PO QDAY #90 tabs 05/20/24 [Rx] metformin 500 mg tablet,extended release 24 hr 500 mg PO QDAY #30 tabs 05/20/24 [Rx] pen needle, diabetic 31 gauge x 5/16 #100 ea 05/20/24 [Rx] sertraline 50 mg tablet 50 mg PO QDAY 1 month #30 tabs 05/20/24 [Rx] MA Intake Visit Data Collection New Patient or Established: Established Patient (seen at [facility] within 3 years) Seen by Clinical Staff ONLY (RN/MA): No Pain Present Currently: No Pain scale:: 0 Pain Scale Used: Easton-Simon/Numerical PCP or OBGYN visit in last 3 months: Yes Do You Feel Safe at Home: Yes Authorities Contacted: N/A Smoking Status Smoking Status: Never smoker Immunization / Flu Flu Vaccine in the Last 12 Months: Yes Flu Vaccine Exclusion Criteria: Already Received Past Medical History Past Medical History NEUROLOGIC: Negative Neurological Disorders CARDIAC: Negative Cardiac Disorders or Congestive Heart Failure RESPIRATORY: Negative Chronic Obstructive Pulmonary Disease (COPD) GASTROINTESTINAL: Negative Gastrointestinal Disorders GENITOURINARY: Positive Genitourinary Disorders and Inguinal Hernia (Je); Negative Renal Disease ENDOCRINE: Positive Endocrine Disorders and Diabetes Mellitus Type 2; Negative Diabetes Mellitus Type 1 HEMATOLOGIC: Negative Blood Disorders OTHER HISTORY: Negative Hospitalization, Autoimmune Disease, Down Syndrome, Developmental Delay, Shingles, Falls, Blood Transfusions, Anesthesia Reactions, MRSA, VRSA, Vancomycin-Resistant Enterococci, Human Immunodeficiency Virus (HIV), Chicken Pox, Measles, Mumps, Rubella (Romansh Measles), Pertussis, Clostridium Difficile or Cancer Social History SMOKING STATUS: Smoking status: Never smoker SECOND HAND EXPOSURE: second hand exposure: No ALCOHOL: Alcohol Intake: Current ALCOHOL FREQUENCY: Alcohol Intake Frequency: holidays/special occasions only HOUSING: Housing: House LIVES WITH: Lives With: Family and Spouse Patient Portal Questionaires Social History Living Situation History Housing: House Housing Other:: Lives with . Tobacco History Smoking Status: Never smoker Second Hand Smoke Exposure: No Alcohol History Alcohol Intake: Current Alcohol Intake Frequency: holidays/special occasions only Domestic Abuse History Do You Feel Safe at Home: Yes Review of Systems Report any current symptoms Only answer those that you have currently: Past Medical History Past Medical History Have you ever been diagnosed with any of the following: Cardiology Problems Congestive Heart Failure: No Respiratory Problems Chronic Obstructive Pulmonary Disease (COPD): No Genital/Urinary Problems Renal Disease: No Inguinal Hernia: Yes (Je) Endocrine Problems Diabetes Mellitus Type 1: No Diabetes Mellitus Type 2: Yes Other Problems Hospitalization: No Autoimmune Disease: No Down Syndrome: No Developmental Delay: No Shingles: No Falls: No Blood Transfusions: No Anesthesia Reactions: No MRSA: No VRSA: No Vancomycin-Resistant Enterococci: No Human Immunodeficiency Virus (HIV): No Chicken Pox: No Measles: No Mumps: No Rubella (Romansh Measles): No Pertussis: No Clostridium Difficile: No Cancer: No History of Present Illness HPI Narrative This is a 48-year-old male with a has a past medical history of type 2 diabetes, recently diagnosed HFrEF with ejection fraction of 30% diagnosed on 03/26/2024. Patient presents to our clinic today for discharge follow-up. Patient was recently admitted to [facility] due to increased shortness of breath upon exertion. Patient was admitted and was diagnosed with new onset heart failure. Cardiology Dr. Lyles was consulted. Echocardiogram done of 03/26/2024 showed an EF of 30% with a dilated left ventricle with severe systolic dysfunction, moderate global hypokinesis. Patient was started on Coreg 3.125 mg twice daily and Lasix 20 mg once daily. While admission patient's A1c was 14. Patient was started on long-acting insulin degludec 20 units, and metformin. Today the patient states that he feels much better. Continues to endorse RODRIGEZ however it has improved significantly. Denies any chest pain, palpitations, lightheadedness, abdominal pain. 05/20/24: Patient here for lab follow up and glucose monitor. Patient feels well today. Much better than previous visit. Patient has lost significant amount of weight. Lost about 20 pounds since last visit. Seems his baseline weight is about 100 kg. RODRIGEZ has resolved. Denies chest pain, lightheadedness. Has a CGM, we will see the trend. 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 Sensation grossly intact. Assessment & Plan Diagnosis / Problem List (1) New onset of congestive heart failure: Status: Acute Assessment & Plan: Echo done on 03/26/2025 showed an EF of 30% NYHA class II AHA/ACC class C Plan: GDMT: -coreg 3.125mg BID -increase lisinopril 5mg QD Pending insurance prior auth for: margo and estrella Currently following cardiology Dr Lyles. pending addiotional work up decrease lasix 20mg QD increase to 40mg if weight increases plan to start SGLT2i/GLP1a combination, peding prior auth (2) Insulin dependent diabetes mellitus: Status: Acute Assessment & Plan: 04/13 A1c 14 CGM showed BG controlled on AM fasting however, still having spike postpandrial Plan: -cont glargine 20 -added meal time insulin lispro 3 u TIDWM -CGM ordered (3) HTN (hypertension): Status: Acute Qualifiers: Hypertension type: primary hypertension Qualified Code(s): I10 - Essential (primary) hypertension Assessment & Plan: slightly increased today Plan: -increase lisinopril to 5mg PO QD (4) Obesity: Status: Acute Qualifiers: Body mass index: BMI 35.0-35.9 Obesity classification: adult class 2 (BMI 35 - 39.9) Obesity type: due to excess calories Serious obesity comorbidity presence: with serious comorbidity Qualified Code(s): E66.812 - Obesity, class 2; E66.01 - Morbid (severe) obesity due to excess calories; Z68.35 - Body mass index [BMI] 35.0-35.9, adult Assessment & Plan: BMI 35.4 Plan: -plan to orderd chemo or brie will require prior auth Additional Assessment Internal Medicine Attending Note: Case discussed with and agree with note and management plan of Resident Physician as per Resident's Note above. Issues of concern for present visit are as follows: 2-week follow-up visit. Patient continues to improve. Has lost another 12 kg. Has lost over 26 kg since first visit on April 15. Feels he is approaching his baseline weight. Dyspnea on exertion much improved. Has been able to obtain a CGM. A.m. fasting glucose in appropriate range, but having postprandial spikes in blood glucose. We will add bolus insulin at mealtime. Continue metformin. Blood pressure noted to be slightly higher today. Will increase lisinopril to 5 mg daily. Recheck labs for next visit. Still awaiting prior authorization on SGLT2 or GLP-1. Given the amount of weight loss, we will decrease the dose of Lasix to 20 mg, however if his weight starts to go up or he notes fluid retention, we will go back to 40 mg daily. Julien Rinaldi MD Physician Billing Established Patient Established Patient: E/M Level 3-CPT 22774 Office Procedures [facility] Level of Care Nursing/Assessment Patient Status: Established Patient Nursing Assessment/Reassessment: Medication Reconciliation, Update PMH in EMR and Vital Signs Coordination of Care: Complex Care/Chronic Disease 5 or more, Consent,records obtained, informed consent, Education Simp Pt/Fam, Lab and Imaging orders and Staff clarify orders Established Patient Charge Established Patient Point Assignment: 110 Established Patient Point Charge: EP Level 3 (80-115)
[2024-05-20 14:18] VITALS: BP 137/85; PULSE 69; RESP 18; TEMP 36.8; O2SAT 95; BMI 31.6
== END 2024-05-20 15:35 | disposition home or self-care (01) ==
LOC: HODAHC 14:06
PROVIDERS: PCP Student in an Organized Health Care Education/Training Program; Referring Provider Student in an Organized Health Care Education/Training Program; Supervising Provider Internal Medicine; Visit Provider Student in an Organized Health Care Education/Training Program
DX: E11.9 Type 2 diabetes mellitus without complications (principal); I11.0 Hypertensive heart disease with heart failure; I50.20 Unspecified systolic (congestive) heart failure; Z79.4 Long term (current) use of insulin; Z79.84 Long term (current) use of oral hypoglycemic drugs; E66.812 Obesity, class 2; Z68.31 Body mass index [BMI] 31.0-31.9, adult
CPT/HCPCS: 99213; G0463

== ENCOUNTER 2024-06-03 13:30 | Outpatient (AMB) | payer BC, SELFPAY ==
[2024-06-03 13:36] VITALS: BP 107/63; PULSE 65; RESP 17; TEMP 36.6; O2SAT 95; BMI 31.9
--- NOTE | 2024-06-03 13:36 | ACNOTE_ITS ---
Vital Signs 06/03/24 13:36 Height 1.78 m Height Method Stated Weight 101.321 kg Weight Measurement Method Standing Scale BMI 31.9 BP 107/63 Blood Pressure Source Automatic Cuff Blood Pressure Location Left Upper Arm Position Sitting Respiration 17 Pulse 65 Pulse Source Monitor Temp 97.8 F Temp Source Temporal Artery Scan Pulse Oximetry (%) 95 Oxygen Delivery Method Room Air Allergies/Meds Allergies & Medications Allergies No Known Allergies Allergy (Verified 06/28/24 14:26) Medication Reconciliation blood-glucose meter (Blood Glucose Monitoring kit) #1 ea 03/29/24 [Rx Confirmed 06/30/24] flash glucose scanning reader (DSTLDStyle Angeline 2 [place]) #1 ea 03/29/24 [Rx Confirmed 06/30/24] glucagon 3 mg/actuation nasal spray (Baqsimi) 3 mg intranasal QDAY #2 ea 03/29/24 [Rx Confirmed 06/30/24] miscellaneous medical supply (Blood Pressure Cuff) #1 ea 03/29/24 [Rx Confirmed 06/30/24] aspirin 81 mg tablet,delayed release 81 mg PO QDAY #30 tabs 05/20/24 [Rx Confirmed 06/30/24] atorvastatin 20 mg tablet 20 mg PO HS #30 tabs 05/20/24 [Rx Confirmed 06/30/24] flash glucose sensor (FreeStyle Angeline 2 Sensor kit) #6 ea 05/20/24 [Rx Confirmed 06/30/24] furosemide 40 mg tablet (Lasix) 40 mg PO BID 1 month #60 tabs 05/20/24 [Rx Confirmed 06/30/24] insulin glargine 100 unit/mL (3 mL) subcutaneous pen (Lantus Solostar U-100 Insulin) 20 unit (0.2 mL) subcut QPM #15 mL 05/20/24 [Rx Confirmed 06/30/24] lisinopril 5 mg tablet 5 mg PO QDAY #90 tabs 05/20/24 [Rx Confirmed 06/30/24] pen needle, diabetic 31 gauge x 5/16 #100 ea 05/20/24 [Rx Confirmed 06/30/24] sertraline 50 mg tablet 50 mg PO QDAY 1 month #30 tabs 05/20/24 [Rx Confirmed 06/30/24] carvedilol 3.125 mg tablet 3.125 mg PO QDAY HIGHPERTENSION 06/30/24 [History Confirmed 06/30/24] metformin 500 mg tablet,extended release 24 hr 1,000 mg PO QDAY 06/30/24 [History Confirmed 06/30/24] Held on 06/30/24. Instructions: Resume on 07/03/24. please resume metformin on 07/03/24 as directed. 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 Required: No PCP or OBGYN visit in last 3 months: No Hx Now: No Do You Feel Safe at Home: Yes Authorities Contacted: N/A Smoking Status Smoking Status: Never smoker Immunization / Flu Flu Vaccine in the Last 12 Months: No Flu Vaccine Exclusion Criteria: No Exclusion Criteria Past Medical History Past Medical History NEUROLOGIC: Negative Neurological Disorders CARDIAC: Negative Cardiac Disorders or Congestive Heart Failure RESPIRATORY: Negative Chronic Obstructive Pulmonary Disease (COPD) GASTROINTESTINAL: Negative Gastrointestinal Disorders GENITOURINARY: Positive Genitourinary Disorders and Inguinal Hernia (Je); Negative Renal Disease ENDOCRINE: Positive Endocrine Disorders and Diabetes Mellitus Type 2; Negative Diabetes Mellitus Type 1 HEMATOLOGIC: Negative Blood Disorders OTHER HISTORY: Negative Hospitalization, Autoimmune Disease, Down Syndrome, Developmental Delay, Shingles, Falls, Blood Transfusions, Anesthesia Reactions, MRSA, VRSA, Vancomycin-Resistant Enterococci, Human Immunodeficiency Virus (HIV), Chicken Pox, Measles, Mumps, Rubella (Nigerien Measles), Pertussis, Clostridium Difficile or Cancer Social History SMOKING STATUS: Smoking status: Never smoker SECOND HAND EXPOSURE: second hand exposure: No ALCOHOL: Alcohol Intake: Current ALCOHOL FREQUENCY: Alcohol Intake Frequency: holidays/special occasions only HOUSING: Housing: House LIVES WITH: Lives With: Family and Spouse Patient Portal Questionaires Social History Living Situation History Housing: House Housing Other:: Lives with . Tobacco History Smoking Status: Never smoker Second Hand Smoke Exposure: No Alcohol History Alcohol Intake: Current Alcohol Intake Frequency: holidays/special occasions only Domestic Abuse History Do You Feel Safe at Home: Yes Review of Systems Report any current symptoms Only answer those that you have currently: Past Medical History Past Medical History Have you ever been diagnosed with any of the following: Cardiology Problems Congestive Heart Failure: No Respiratory Problems Chronic Obstructive Pulmonary Disease (COPD): No Genital/Urinary Problems Renal Disease: No Inguinal Hernia: Yes (Je) Endocrine Problems Diabetes Mellitus Type 1: No Diabetes Mellitus Type 2: Yes Other Problems Hospitalization: No Autoimmune Disease: No Down Syndrome: No Developmental Delay: No Shingles: No Falls: No Blood Transfusions: No Anesthesia Reactions: No MRSA: No VRSA: No Vancomycin-Resistant Enterococci: No Human Immunodeficiency Virus (HIV): No Chicken Pox: No Measles: No Mumps: No Rubella (Nigerien Measles): No Pertussis: No Clostridium Difficile: No Cancer: No History of Present Illness HPI Narrative This is a 48-year-old male with a has a past medical history of type 2 diabetes, recently diagnosed HFrEF with ejection fraction of 30% diagnosed on 03/26/2024. Patient presents to our clinic today for discharge follow-up. Patient was recently admitted to [facility] due to increased shortness of breath upon exertion. Patient was admitted and was diagnosed with new onset heart failure. Cardiology Dr. Lyles was consulted. Echocardiogram done of 03/26/2024 showed an EF of 30% with a dilated left ventricle with severe systolic dysfunction, moderate global hypokinesis. Patient was started on Coreg 3.125 mg twice daily and Lasix 20 mg once daily. While admission patient's A1c was 14. Patient was started on long-acting insulin degludec 20 units, and metformin. Today the patient states that he feels much better. Continues to endorse RODRIGEZ however it has improved significantly. Denies any chest pain, palpitations, lightheadedness, abdominal pain. 05/20/24: Patient here for lab follow up and glucose monitor. Patient feels well today. Much better than previous visit. Patient has lost significant amount of weight. Lost about 20 pounds since last visit. Seems his baseline weight is about 100 kg. RODRIGEZ has resolved. Denies chest pain, lightheadedness. Has a CGM, we will see the trend. 06/03/24: Patient came for follow up. Patient feels better. Weight is currently stable. Able to walk with RODRIGEZ. Denies any chest pain, lightheadedness, or palpitations. Has been adherent to his medications. Has a scheduled LHC with Dr Lyles. 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 Sensation grossly intact. Assessment & Plan Diagnosis / Problem List (1) New onset of congestive heart failure: Status: Acute Assessment & Plan: Echo done on 03/26/2025 showed an EF of 30% NYHA class II AHA/ACC class C Plan: GDMT: -coreg 3.125mg BID -increase lisinopril 5mg QD Pending insurance prior auth for: margo and estrella Currently following cardiology Dr Lyles. pending addiotional work up decrease lasix 20mg QD increase to 40mg if weight increases plan to start SGLT2i/GLP1a combination, peding prior auth (2) Insulin dependent diabetes mellitus: Status: Acute Assessment & Plan: 04/13 A1c 14 CGM showed BG controlled on AM fasting however, still having spike postpandrial Plan: -cont glargine 20 -added meal time insulin lispro 3 u TIDWM -CGM ordered (3) HTN (hypertension): Status: Acute Qualifiers: Hypertension type: primary hypertension Qualified Code(s): I10 - Essential (primary) hypertension Assessment & Plan: slightly increased today Plan: -increase lisinopril to 5mg PO QD (4) Obesity: Status: Acute Qualifiers: Body mass index: BMI 35.0-35.9 Obesity classification: adult class 2 (BMI 35 - 39.9) Obesity type: due to excess calories Serious obesity comorb idity presence: with serious comorbidity Qualified Code(s): E66.812 - Obesity, class 2; E66.01 - Morbid (severe) obesity due to excess calories; Z68.35 - Body mass index [BMI] 35.0-35.9, adult Assessment & Plan: BMI 35.4, now improved to 31.9 due to water loss from diuretics. Plan: -plan to orderd ozempic or mounjaro will require prior auth Additional Assessment Internal Medicine Attending Note: Case discussed with and agree with note and management plan of Resident Physician as per Resident's Note above. Issues of concern for present visit are as follows: Follow-up visit. Diabetes self-care reviewed including diet, exercise, footcare, eye care. Patient tolerating insulin and metformin, home glucose readings better. Tolerating medical therapy for heart failure with reduced ejection fraction. Ambulating without dyspnea now. No chest pain, palpitations, dizziness. He is to undergo a heart catheterization by his tubing oiler. In office today, blood pressure 107 or 63, heart rate 65, respiration 17, pulse ox 95% on room air. Weight is slightly higher than prior visit at 101 kg with BMI 31.9, however this is significantly improved from March with a nearly 25 kg weight loss since that time. Edema remains much improved. Patient instructed on titrating Lasix based on weight. We are waiting for prior authorization for an SGLT2. Mealtime insulin along with basal insulin for diabetic regimen along with metformin for now. Julien Rinaldi MD Physician Billing Established Patient Established Patient: E/M Level 3-CPT 38838 Office Procedures [facility] Level of Care Nursing/Assessment Patient Status: Established Patient Nursing Assessment/Reassessment: Medication Reconciliation, Update PMH in EMR and Vital Signs Coordination of Care: Complex Care and Chronic Disease 1-5, Consent,records obtained, informed consent, Education Simp Pt/Fam and Staff clarify orders Established Patient Charge Established Patient Point Assignment: 85 Established Patient Point Charge: Level 3 (80-115)
== END 2024-06-03 14:00 | disposition home or self-care (01) ==
LOC: HODAHC 13:30
PROVIDERS: PCP Student in an Organized Health Care Education/Training Program; Referring Provider Student in an Organized Health Care Education/Training Program; Supervising Provider Internal Medicine; Visit Provider Student in an Organized Health Care Education/Training Program
DX: I11.0 Hypertensive heart disease with heart failure (principal); I50.20 Unspecified systolic (congestive) heart failure; E66.812 Obesity, class 2; Z68.31 Body mass index [BMI] 31.0-31.9, adult; E11.9 Type 2 diabetes mellitus without complications; Z79.4 Long term (current) use of insulin; Z79.84 Long term (current) use of oral hypoglycemic drugs
CPT/HCPCS: 99213; G0463

== ENCOUNTER 2024-06-30 06:32 | Day surgery (SDC) | payer BC, SELFPAY ==
[2024-06-28 14:27] VITALS: BMI 30.8
--- NOTE | 2024-06-29 07:00 | EKG_ITS ---
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
[2024-06-29 10:11] LABS: Anion Gap 7 (7-16); BUN/Creatinine Ratio 21 Ratio (12-20); Blood Urea Nitrogen 17 mg/dL (9-23); Calcium 9.5 mg/dL (8.3-10.6); Carbon Dioxide 30.2 mMol/L (20.0-31.0); Chloride 104 mMol/L (98-107); Creatinine (Component) 0.8 mg/dL (0.6-1.3); Estimated Creatinine Clearance 129.4 mL/min (>60); Glucose 116 mg/dL (74-106); Osmolality,Calculated 283 (275-295); Potassium 4.2 mMol/L (3.4-5.1); Sodium 141 mMol/L (136-145); eGFR > 60 See Note
[2024-06-29 10:55] LABS: INR 0.9 (0.9-1.3); Partial Thromboplastin Time 25.1 Seconds (22.0-36.0); Prothrombin Time 10.3 Seconds (9.0-12.2)
[2024-06-29 11:13] LABS: COVID-19 Antigen (In-House) Negative (Negative)
[2024-06-29 11:15] LABS: Basophils # (Auto) 0.1 Thou/mm3 (0.0-0.2); Basophils % (Auto) 1 % (0-2.5); Eosinophils # (Auto) 0.2 Thou/mm3 (0.0-0.5); Eosinophils % (Auto) 3 % (0-10); Hematocrit 44.4 % (41.0-53.0); Hemoglobin 14.7 g/dL (13.5-16.0); Immature Granulocytes % (Auto) 0 % (0-0); Immature Granulocytes Auto 0.01 Thou/mm3 (0.00-0.00); Lymphocytes # (Auto) 2.2 Thou/mm3 (1.0-4.8); Lymphocytes % (Auto) 38 % (10-50); Mean Corpuscular HGB Conc 33.1 g/dl (31.0-37.0); Mean Corpuscular Hemoglobin 27.2 pg (25.0-35.0); Mean Corpuscular Volume 82 fL (80-100); Monocytes # (Auto) 0.5 Thou/mm3 (0.0-0.8); Monocytes % (Auto) 10 % (0-12); Neutrophils # (Auto) 2.7 Thou/mm3 (1.8-7.7); Neutrophils % (Auto) 48 % (37-80); Nucleated Red Blood Cell % 0 /100 WBC (0); Platelet Count 278 Thou/mm3 (140-440); RDW Standard Deviation 38.7 fL (35.1-43.9); White Blood Count 5.7 Thou/mm3 (3.8-10.6)
[2024-06-30] VITALS (15 sets, daily range): BP systolic 90–134; BP diastolic 55–74; PULSE 55–66; RESP 11–18; TEMP 36.5–36.6; O2SAT 92–96; BMI 32.8
[2024-06-30] MEDS: ONDANSETRON INJ 2 MG/ML INJ 2 ML 4 MG IV (07:24)
[2024-06-30] MEDS: DIAZEPAM 5 MG TABLET PO (07:24)
--- NOTE | 2024-06-30 08:27 | PD.CARDCATH ---
Cardiac Cath Procedure Procedure Narrative Date of the procedure Dated the procedure 06/30/2024 Title of the procedure 1. Left heart catheterization 2. Left coronary angiogram 3. Right coronary angiogram 4. Left ventriculogram 5. Conscious sedation 6. Radiographic interpretation supervision 7. Ultrasound guidence for Right radial access Indication for the procedure This is a 48-year-old gentleman with hypertension hyperlipidemia diabetes obesity Complains of atypical chest pain Cardiolite scan was abnormal Cardiac catheter cholangiogram recommended Procedure This is done in the cardiac lab under continuous electrocardiographic monitoring Intermittent blood pressure monitoring right radial arterial access obtained using modified Seldinger technique 6 Grenadian radial sheath was placed under ultrasound guidence TIG catheter was used for selective injection of the Left coronary artery TIG cather was used for selective injection of the Right coroanry artery TIG cather was used for LV gram Findings Hemodynamics Left ventricular systolic function is 40 to 45% Left ventricular end-diastolic pressure is 16 mmHg Gradient across the aortic valve is 0 mm gradient Coronary anatomy Right dominance Left main coronary artery is normal Left anterior descending artery is normal Diagonal vessel is luminal irregularities Left circumflex artery is normal Obtuse marginal vessel is luminal irregularities Right coronary artery is normal Posterior descending artery is normal Conclusion No significant coronary lesion Recommendation Continue medical management
== END 2024-06-30 12:50 | disposition home or self-care (01) ==
PROVIDERS: PCP Student in an Organized Health Care Education/Training Program; Referring Provider Internal Medicine; Visit Provider Internal Medicine
PROC: (CPT 93458; principal; 2024-06-30 07:45)
DX: I25.118 Atherosclerotic heart disease of native coronary artery with other forms of angina pectoris (principal); E11.9 Type 2 diabetes mellitus without complications; E78.5 Hyperlipidemia, unspecified; I10 Essential (primary) hypertension; E66.9 Obesity, unspecified; Z01.810 Encounter for preprocedural cardiovascular examination; Z68.32 Body mass index [BMI] 32.0-32.9, adult
CPT/HCPCS: 93458; 36415; 80048; 85025; 85610; 85730; 87811; 93005; 99152; 99153; A4216; A4649; C1769; C1887; C1894; J0171; J0461; J0583; J1643; J2250; J2310; J2371; J2405; J3010; J3490; Q9967; A9270; J2305

== ENCOUNTER → 2024-07-04 | Outpatient (CLI) | payer BC, SELFPAY ==
[2024-07-04 08:27] LABS: Basophils % (Auto) 1 % (0-2.5); Eosinophils # (Auto) 0.2 Thou/mm3 (0.0-0.5); Eosinophils % (Auto) 3 % (0-10); Hematocrit 43.3 % (41.0-53.0); Hemoglobin 14.9 g/dL (13.5-16.0); Immature Granulocytes % (Auto) 0 % (0-0); Immature Granulocytes Auto 0.02 Thou/mm3 (0.00-0.00); Lymphocytes # (Auto) 2.5 Thou/mm3 (1.0-4.8); Lymphocytes % (Auto) 42 % (10-50); Mean Corpuscular HGB Conc 34.4 g/dl (31.0-37.0); Mean Corpuscular Hemoglobin 27.5 pg (25.0-35.0); Mean Corpuscular Volume 80 fL (80-100); Monocytes # (Auto) 0.5 Thou/mm3 (0.0-0.8); Monocytes % (Auto) 9 % (0-12); Neutrophils # (Auto) 2.6 Thou/mm3 (1.8-7.7); Neutrophils % (Auto) 45 % (37-80); Nucleated Red Blood Cell % 0 /100 WBC (0); Platelet Count 261 Thou/mm3 (140-440); RDW Standard Deviation 37.7 fL (35.1-43.9); Red Blood Count 5.42 Miln/mm3 (4.50-5.90); White Blood Count 5.9 Thou/mm3 (3.8-10.6)
[2024-07-04 08:40] LABS: Glucose Estimated Average 194 mg/dL (80-131); Hemoglobin A1C 8.4 % Hgb (4.8-6.0)
[2024-07-04 08:42] LABS: Alanine Aminotransferase 38 U/L (10-49); Albumin, Serum 4.2 gm/dL (3.5-5.0); Albumin/Globulin Ratio 1.8 (1.2-2.2); Alkaline Phosphatase 67 U/L (46-116); Anion Gap 7 (7-16); Aspartate Amino Transferase 36 U/L (0-34); BUN/Creatinine Ratio 24 Ratio (12-20); Bilirubin,Total 0.7 mg/dL (0.3-1.2); Blood Urea Nitrogen 17 mg/dL (9-23); Calcium 9.3 mg/dL (8.3-10.6); Calcium (Corrected) 9.3 mg/dL (8.5-10.1); Cardiac Risk Estimate 2.2 RATIO (4.0-6.7); Chloride 104 mMol/L (98-107); Cholesterol 119 mg/dL (132-200); Creatinine (Component) 0.7 mg/dL (0.6-1.3); Globulin 2.4 gm/dL (2.3-3.5); Glucose 139 mg/dL (74-106); HDL Cholesterol 54 mg/dL (40-60); LDL Cholesterol,Calculated 51 mg/dL (0-130); Magnesium 1.8 mg/dL (1.6-2.6); Osmolality,Calculated 282 (275-295); Phosphorous 3.9 mg/dL (2.4-5.1); Potassium 4.1 mMol/L (3.4-5.1); Sodium 140 mMol/L (136-145); Total Protein 6.6 gm/dL (5.7-8.2); Triglycerides 68 mg/dL (30-150); eGFR > 60 See Note
[2024-07-04 08:45] LABS: Creatinine MALB Rnd Ur 157 mg/dL (30-125); Microalbumin Creat Ratio 22 mg/gCrea (<30); Microalbumin, Random Urine 35 mg/L (0-300)
[2024-07-04 09:04] LABS: Folate > 24.00 ng/mL (>5.38); Vitamin B12 435 pg/mL (211-911); Vitamin D 25 Hydroxy Total 43.2 ng/mL (7.3-40.2)
[2024-07-04 09:07] LABS: Ferritin 300 ng/mL (10.5-307.3); Iron 72 mcg/dL (65-175); Total Iron Binding Capacity 298 mcg/dL (250-425)
== END | disposition home or self-care (01) ==
PROVIDERS: PCP Student in an Organized Health Care Education/Training Program; Referring Provider Student in an Organized Health Care Education/Training Program; Visit Provider Student in an Organized Health Care Education/Training Program
DX: I11.0 Hypertensive heart disease with heart failure (principal); I50.20 Unspecified systolic (congestive) heart failure; E11.9 Type 2 diabetes mellitus without complications
CPT/HCPCS: 36415; 80053; 80061; 82043; 82306; 82570; 82607; 82728; 82746; 83036; 83540; 83550; 83735; 84100; 85025

== ENCOUNTER 2024-07-08 13:29 | Outpatient (AMB) | payer BC, SELFPAY ==
[2024-07-08 13:38] VITALS: BP 113/76; PULSE 75; RESP 18; TEMP 36.4; O2SAT 95
--- NOTE | 2024-07-08 13:38 | PD.RESCLINIC ---
Vital Signs 07/08/24 13:38 Weight 102.739 kg Weight Measurement Method Standing Scale BP 113/76 Blood Pressure Source Automatic Cuff Blood Pressure Location Right Upper Arm Position Sitting Respiration 18 Pulse 75 Pulse Source Monitor Temp 97.6 F Temp Source Temporal Artery Scan Pulse Oximetry (%) 95 Oxygen Delivery Method Room Air Allergies/Meds Allergies & Medications Allergies No Known Allergies Allergy (Verified 07/08/24 14:23) Medication Reconciliation flash glucose scanning reader (Astley ClarkeStyle Angeline 2 [place]) #1 ea 03/29/24 [Rx Confirmed 07/08/24] glucagon 3 mg/actuation nasal spray (Baqsimi) 3 mg intranasal QDAY #2 ea 03/29/24 [Rx Confirmed 07/08/24] miscellaneous medical supply (Blood Pressure Cuff) #1 ea 03/29/24 [Rx Confirmed 07/08/24] flash glucose sensor (FreeStyle Angeline 2 Sensor kit) #6 ea 05/20/24 [Rx Confirmed 07/08/24] lisinopril 5 mg tablet 5 mg PO QDAY #90 tabs 05/20/24 [Rx Confirmed 07/08/24] metformin 500 mg tablet,extended release 24 hr 1,000 mg PO QDAY 06/30/24 [History Confirmed 07/08/24] aspirin 81 mg tablet,delayed release 81 mg PO QDAY #30 tabs 07/08/24 [Rx] atorvastatin 20 mg tablet 20 mg PO HS #30 tabs 07/08/24 [Rx] blood-glucose meter (Blood Glucose Monitoring kit) #1 ea 07/08/24 [Rx] carvedilol 3.125 mg tablet 3.125 mg PO QDAY HIGHPERTENSION #60 tabs 07/08/24 [Rx] furosemide 40 mg tablet (Lasix) 40 mg PO BID 1 month #60 tabs 07/08/24 [Rx] insulin glargine 100 unit/mL (3 mL) subcutaneous pen (Lantus Solostar U-100 Insulin) 20 unit (0.2 mL) subcut QPM #15 mL 07/08/24 [Rx] pen needle, diabetic 31 gauge x 5/16 #100 ea 07/08/24 [Rx] sertraline 50 mg tablet 50 mg PO QDAY 1 month #30 tabs 07/08/24 [Rx] MA Intake Visit Data Collection New Patient or Established: Established Patient (seen at [facility] within 3 years) Seen by Clinical Staff ONLY (RN/MA): No Pain Present Currently: No Pain scale:: 0 Pain Scale Used: Easton-Simon/Numerical Retoucher Required: No PCP or OBGYN visit in last 3 months: No Hx Now: No Do You Feel Safe at Home: Yes Authorities Contacted: N/A Smoking Status Smoking Status: Never smoker Immunization / Flu Flu Vaccine in the Last 12 Months: No Flu Vaccine Exclusion Criteria: No Exclusion Criteria Past Medical History Past Medical History NEUROLOGIC: Negative Neurological Disorders CARDIAC: Positive Cardiac Disorders and Congestive Heart Failure RESPIRATORY: Negative Chronic Obstructive Pulmonary Disease (COPD) GASTROINTESTINAL: Negative Gastrointestinal Disorders GENITOURINARY: Positive Genitourinary Disorders and Inguinal Hernia (Je); Negative Renal Disease ENDOCRINE: Positive Endocrine Disorders and Diabetes Mellitus Type 2; Negative Diabetes Mellitus Type 1 HEMATOLOGIC: Negative Blood Disorders PSYCHO/SOCIAL: Positive Depression and Anxiety OTHER HISTORY: Negative Hospitalization, Autoimmune Disease, Down Syndrome, Developmental Delay, Shingles, Falls, Blood Transfusions, Anesthesia Reactions, MRSA, VRSA, Vancomycin-Resistant Enterococci, Human Immunodeficiency Virus (HIV), Chicken Pox, Measles, Mumps, Rubella (Malay Measles), Pertussis, Clostridium Difficile or Cancer Surgical History SURGICAL: Positive Abdominal Surgery; Negative Cardiac Surgery or Endocrine Surgery Social History SMOKING STATUS: Smoking status: Never smoker SECOND HAND EXPOSURE: second hand exposure: No ALCOHOL: Alcohol Intake: Current ALCOHOL FREQUENCY: Alcohol Intake Frequency: holidays/special occasions only HOUSING: Housing: House LIVES WITH: Lives With: Family and Spouse Patient Portal Questionairtorrey Social History Living Situation History Housing: House Housing Other:: Lives with . Tobacco History Smoking Status: Never smoker Second Hand Smoke Exposure: No Alcohol History Alcohol Intake: Current Alcohol Intake Frequency: holidays/special occasions only Alcohol Intake Frequency Other:: socially Domestic Abuse History Do You Feel Safe at Home: Yes Review of Systems Report any current symptoms Only answer those that you have currently: Past Medical History Past Medical History Have you ever been diagnosed with any of the following: Cardiology Problems Congestive Heart Failure: Yes Respiratory Problems Chronic Obstructive Pulmonary Disease (COPD): No Genital/Urinary Problems Renal Disease: No Inguinal Hernia: Yes (Je) Endocrine Problems Diabetes Mellitus Type 1: No Diabetes Mellitus Type 2: Yes Psychologic Problems Depression: Yes Anxiety: Yes Other Problems Hospitalization: No Autoimmune Disease: No Down Syndrome: No Developmental Delay: No Shingles: No Falls: No Blood Transfusions: No Anesthesia Reactions: No MRSA: No VRSA: No Vancomycin-Resistant Enterococci: No Human Immunodeficiency Virus (HIV): No Chicken Pox: No Measles: No Mumps: No Rubella (Malay Measles): No Pertussis: No Clostridium Difficile: No Cancer: No History of Present Illness HPI Narrative Patient is a 48 M here for follow up. Patient had heart cath in mid May with Dr Lyles, which results in normal coronaries. EF during the LHC showed 45%. Patient reports no symptoms, denies CP, RODRIGEZ, PND, palpitations. Patient has never had a colonoscopy, does refer to having bright red blood in toilet paper paper after bowel movements sometimes. No pain while having BM. Has been exercising and has changed his diet. 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 Sensation grossly intact. Assessment & Plan Diagnosis / Problem List (1) Encounter for screening for malignant neoplasm of colon: Status: Acute Plan: -Referal for GI for colonoscopy, to Dr Foster (2) Hematochezia: Status: Acute Assessment & Plan: no additional red flag noted about once a month Plan: see above (3) HLD (hyperlipidemia): Status: Acute Assessment & Plan: controlled Plan: -Continue current management -diet and exercise recommended (4) Insulin dependent diabetes mellitus: Status: Acute Assessment & Plan: A1c from 14 -> 8.4 (07/12) Plan: -continue current management (5) HFrEF (heart failure with reduced ejection fraction): Status: Acute Assessment & Plan: Current EF 45%, improved from 35% Etiology of the HFrEF remains unknown. LHC showed normal coronaries with no valvular abnormalities. High on the differential remains idiopathy dilated cardiomyopathy, myocarditis, infiltrative disease NYHA score I Plan: -Continue current GDMT as prescribed -follow up with cardiology -we will consider tertiary cardiovascular center for work up regarding its etiology Orders: Referrals Gastroenterology K92.1 - Melena, Z12.11 - Encounter for screening for malignant neoplasm of colon Office Procedures [facility] Level of Care Nursing/Assessment Patient Status: Established Patient Nursing Assessment/Reassessment: Medication Reconciliation, Update PMH in EMR and Vital Signs Coordination of Care: Complex Care and Chronic Disease 1-5, Consent,records obtained, informed consent, Education Simp Pt/Fam, 1 Ins Authorization, Ref for ancillary service and Staff clarify orders Established Patient Charge Established Patient Point Assignment: 120 Established Patient Point Charge: EP Level 4 (120-155)
== END 2024-07-08 14:36 | disposition home or self-care (01) ==
LOC: HODAHC 13:29
PROVIDERS: PCP Student in an Organized Health Care Education/Training Program; Referring Provider Student in an Organized Health Care Education/Training Program; Supervising Provider Internal Medicine; Visit Provider Student in an Organized Health Care Education/Training Program
DX: K92.1 Melena (principal); E78.5 Hyperlipidemia, unspecified; E11.9 Type 2 diabetes mellitus without complications; Z79.4 Long term (current) use of insulin; I50.20 Unspecified systolic (congestive) heart failure
CPT/HCPCS: 99214; G0463

== ENCOUNTER → 2024-09-08 | Outpatient (CLI) | payer BC, SELFPAY ==
[2024-09-08 08:42] LABS: Basophils % (Auto) 1 % (0-2.5); Eosinophils # (Auto) 0.3 Thou/mm3 (0.0-0.5); Eosinophils % (Auto) 4 % (0-10); Hematocrit 40.7 % (41.0-53.0); Hemoglobin 14.1 g/dL (13.5-16.0); Immature Granulocytes % (Auto) 0 % (0-0); Immature Granulocytes Auto 0.02 Thou/mm3 (0.00-0.00); Lymphocytes # (Auto) 2.1 Thou/mm3 (1.0-4.8); Lymphocytes % (Auto) 33 % (10-50); Mean Corpuscular HGB Conc 34.6 g/dl (31.0-37.0); Mean Corpuscular Volume 84 fL (80-100); Monocytes # (Auto) 0.7 Thou/mm3 (0.0-0.8); Monocytes % (Auto) 11 % (0-12); Neutrophils # (Auto) 3.3 Thou/mm3 (1.8-7.7); Neutrophils % (Auto) 51 % (37-80); Nucleated Red Blood Cell % 0 /100 WBC (0); Platelet Count 355 Thou/mm3 (140-440); RDW Standard Deviation 43.1 fL (35.1-43.9); Red Blood Count 4.87 Miln/mm3 (4.50-5.90); White Blood Count 6.4 Thou/mm3 (3.8-10.6)
[2024-09-08 08:53] LABS: Glucose Estimated Average 123 mg/dL (80-131); Hemoglobin A1C 5.9 % Hgb (4.8-6.0)
[2024-09-08 09:03] LABS: Ferritin 387 ng/mL (10.5-307.3); Iron 86 mcg/dL (65-175); Prostate Specific Antigen 0.31 ng/mL (0-4.00); Total Iron Binding Capacity 301 mcg/dL (250-425)
[2024-09-08 09:07] LABS: Alanine Aminotransferase 22 U/L (10-49); Albumin, Serum 4.3 gm/dL (3.5-5.0); Albumin/Globulin Ratio 1.4 (1.2-2.2); Alkaline Phosphatase 62 U/L (46-116); Anion Gap 8 (7-16); Aspartate Amino Transferase 24 U/L (0-34); BUN/Creatinine Ratio 24 Ratio (12-20); Bilirubin,Total 0.7 mg/dL (0.3-1.2); Blood Urea Nitrogen 19 mg/dL (9-23); Calcium 9.3 mg/dL (8.3-10.6); Calcium (Corrected) 9.3 mg/dL (8.5-10.1); Cardiac Risk Estimate 2.2 RATIO (4.0-6.7); Chloride 103 mMol/L (98-107); Cholesterol 132 mg/dL (132-200); Creatinine (Component) 0.8 mg/dL (0.6-1.3); Globulin 3.1 gm/dL (2.3-3.5); Glucose 135 mg/dL (74-106); HDL Cholesterol 60 mg/dL (40-60); LDL Cholesterol,Calculated 60 mg/dL (0-130); Osmolality,Calculated 285 (275-295); Potassium 4.5 mMol/L (3.4-5.1); Sodium 141 mMol/L (136-145); Total Protein 7.4 gm/dL (5.7-8.2); Triglycerides 62 mg/dL (30-150); eGFR > 60 See Note
== END | disposition home or self-care (01) ==
PROVIDERS: PCP Student in an Organized Health Care Education/Training Program; Referring Provider Student in an Organized Health Care Education/Training Program; Visit Provider Student in an Organized Health Care Education/Training Program
DX: E11.10 Type 2 diabetes mellitus with ketoacidosis without coma (principal); I10 Essential (primary) hypertension
CPT/HCPCS: 36415; 80053; 80061; 82728; 83036; 83540; 83550; 84153; 85025

== ENCOUNTER 2024-09-09 14:20 | Outpatient (AMB) | payer BC, SELFPAY ==
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
[2024-09-09 14:21] VITALS: BP 123/80; PULSE 70; RESP 18; TEMP 36.8; O2SAT 97; BMI 30.8
== END 2024-09-09 14:46 | disposition home or self-care (01) ==
LOC: HODAHC 14:20
PROVIDERS: PCP Student in an Organized Health Care Education/Training Program; Referring Provider Student in an Organized Health Care Education/Training Program; Supervising Provider Internal Medicine; Visit Provider Student in an Organized Health Care Education/Training Program
DX: E11.9 Type 2 diabetes mellitus without complications (principal); Z79.4 Long term (current) use of insulin; I50.20 Unspecified systolic (congestive) heart failure; E78.5 Hyperlipidemia, unspecified
CPT/HCPCS: 99213; G0463

== ENCOUNTER 2024-11-10 08:56 | Outpatient (AMB) | payer BC, SELFPAY ==
[2024-11-10 09:12] VITALS: BP 137/89; PULSE 76; RESP 18; TEMP 36.6; O2SAT 97; BMI 30.8
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
== END 2024-11-10 09:36 | disposition home or self-care (01) ==
LOC: HODAHC 08:56
PROVIDERS: Supervising Provider Internal Medicine
DX: I50.20 Unspecified systolic (congestive) heart failure (principal); E11.9 Type 2 diabetes mellitus without complications; E78.5 Hyperlipidemia, unspecified; Z79.4 Long term (current) use of insulin
CPT/HCPCS: 99213; G0463

== ENCOUNTER 2025-02-17 13:00 | Outpatient (AMB) | payer BC, SELFPAY ==
[2025-02-17 13:10] VITALS: BP 149/70; PULSE 74; RESP 18; TEMP 36.4; O2SAT 95; BMI 33.1
--- NOTE | 2025-02-17 13:10 | ACNOTE_ITS ---
Vital Signs 02/17/25 13:10 Height 1.78 m Height Method Stated Weight 105.007 kg Weight Measurement Method Standing Scale BMI 33.1 BP 149/70 H Blood Pressure Source Automatic Cuff Blood Pressure Location Right Upper Arm Position Sitting Respiration 18 Pulse 74 Pulse Source Monitor Temp 97.5 F Temp Source Temporal Artery Scan Pulse Oximetry (%) 95 Oxygen Delivery Method Room Air Allergies/Meds Allergies & Medications Allergies No Known Allergies Allergy (Verified 02/17/25 13:11) Medication Reconciliation miscellaneous medical supply (Blood Pressure Cuff) #1 ea 03/29/24 [Rx Confirmed 02/17/25] aspirin 81 mg tablet,delayed release 81 mg PO QDAY #30 tabs 02/17/25 [Rx] atorvastatin 20 mg tablet 40 mg (2 x 20 mg) PO HS #60 tabs 02/17/25 [Rx] blood-glucose meter (Blood Glucose Monitoring kit) #1 ea 02/17/25 [Rx] blood-glucose sensor (RelateIQcom G7 Sensor device) #1 ea 02/17/25 [Rx] blood-glucose,steward/stewardess night,cont (Dexcom G7 Electric Blanket Packer) #1 ea 02/17/25 [Rx] carvedilol 3.125 mg tablet 3.125 mg PO BID HIGHPERTENSION #60 tabs 02/17/25 [Rx] flash glucose scanning reader (RotapanelStyle Angeline 2 [place]) #1 ea 02/17/25 [Rx] flash glucose sensor (FreeStyle Angeline 2 Sensor kit) #6 ea 02/17/25 [Rx] furosemide 20 mg tablet 20 mg PO QAM #30 tabs 02/17/25 [Rx] glucagon 3 mg/actuation nasal spray (Baqsimi) 3 mg intranasal QDAY #2 ea 02/17/25 [Rx] insulin glargine 100 unit/mL (3 mL) subcutaneous pen (Lantus Solostar U-100 Insulin) 20 unit (0.2 mL) subcut QPM #15 mL 02/17/25 [Rx] insulin lispro 100 unit/mL subcutaneous pen (Humalog KwikPen (U-100) Insulin) 7 unit (0.07 mL) subcut TID 3 months #18.9 mL 02/17/25 [Rx] lisinopril 5 mg tablet 5 mg PO QDAY #90 tabs 02/17/25 [Rx] metformin 500 mg tablet,extended release 24 hr 1,000 mg (2 x 500 mg) PO QDAY #60 tabs 02/17/25 [Rx] pen needle, diabetic 31 gauge x 5/16 #100 ea 02/17/25 [Rx] semaglutide 0.25 mg or 0.5 mg (2 mg/3 mL) subcutaneous pen injector (Ozempic) 0.5 mg (0.736 mL) subcut QWEEK Insulin dependent diabetes with HFrEF 2 months #6.624 mL 02/17/25 [Rx] sertraline 50 mg tablet 50 mg PO QDAY 1 month #30 tabs 02/17/25 [Rx] MA Intake Visit Data Collection New Patient or Established: Established Patient (seen at [facility] within 3 years) Seen by Clinical Staff ONLY (RN/MA): No Pain Present Currently: No Pain scale:: 0 Pain Scale Used: [place]/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 Required: No PCP or OBGYN visit in last 3 months: Yes Do You Feel Safe at Home: Yes Authorities Contacted: N/A Smoking Status Smoking Status: Never smoker Immunization / Flu Flu Vaccine in the Last 12 Months: Yes Flu Vaccine Exclusion Criteria: No Exclusion Criteria Past Medical History Past Medical History NEUROLOGIC: Negative Neurological Disorders CARDIAC: Positive Cardiac Disorders and Congestive Heart Failure RESPIRATORY: Negative Chronic Obstructive Pulmonary Disease (COPD) GASTROINTESTINAL: Negative Gastrointestinal Disorders GENITOURINARY: Positive Genitourinary Disorders and Inguinal Hernia (Je); Negative Renal Disease ENDOCRINE: Positive Endocrine Disorders and Diabetes Mellitus Type 2; Negative Diabetes Mellitus Type 1 HEMATOLOGIC: Negative Blood Disorders PSYCHO/SOCIAL: Positive Depression and Anxiety OTHER HISTORY: Negative Hospitalization, Autoimmune Disease, Down Syndrome, Developmental Delay, Shingles, Falls, Blood Transfusions, Anesthesia Reactions, MRSA, VRSA, Vancomycin-Resistant Enterococci, Human Immunodeficiency Virus (HIV), Chicken Pox, Measles, Mumps, Rubella (English Measles), Pertussis, Clostridium Difficile or Cancer Surgical History SURGICAL: Positive Abdominal Surgery; Negative Cardiac Surgery or Endocrine Surgery Social History SMOKING STATUS: Smoking status: Never smoker SECOND HAND EXPOSURE: second hand exposure: No ALCOHOL: Alcohol Intake: Current ALCOHOL FREQUENCY: Alcohol Intake Frequency: holidays/special occasions only HOUSING: Housing: House LIVES WITH: Lives With: Family and Spouse Patient Portal Questionaires Social History Living Situation History Housing: House Housing Other:: Lives with . Tobacco History Smoking Status: Never smoker Second Hand Smoke Exposure: No Alcohol History Alcohol Intake: Current Alcohol Intake Frequency: holidays/special occasions only Alcohol Intake Frequency Other:: socially Domestic Abuse History Do You Feel Safe at Home: Yes Review of Systems Report any current symptoms Only answer those that you have currently: Past Medical History Past Medical History Have you ever been diagnosed with any of the following: Cardiology Problems Congestive Heart Failure: Yes Respiratory Problems Chronic Obstructive Pulmonary Disease (COPD): No Genital/Urinary Problems Renal Disease: No Inguinal Hernia: Yes (Je) Endocrine Problems Diabetes Mellitus Type 1: No Diabetes Mellitus Type 2: Yes Psychologic Problems Depression: Yes Anxiety: Yes Other Problems Hospitalization: No Autoimmune Disease: No Down Syndrome: No Developmental Delay: No Shingles: No Falls: No Blood Transfusions: No Anesthesia Reactions: No MRSA: No VRSA: No Vancomycin-Resistant Enterococci: No Human Immunodeficiency Virus (HIV): No Chicken Pox: No Measles: No Mumps: No Rubella (English Measles): No Pertussis: No Clostridium Difficile: No Cancer: No History of Present Illness HPI Narrative 11/10/24: 48-year-old male with a has a past medical history of type 2 diabetes,HLD, and HFrEF with ejection fraction of 45% was seen at the [facility] for 2 month F/U. Patient states he has been having routine follow-ups with his business machine operator and last saw him last month. Patient states he has still been having some chest pain on/off that lasts around 20-30 minutes associated with some SOB and improves with rest, states his business machine operator is aware. patient is scheduled to see his business machine operator on 11/28/2024 for results for imaging for diagnosis of PAD. Reviewed patient's BG monitor and showed an avg of 137 BG. Patient unable to get his colonoscopy due to being unable to tolerate golytely. He has no Hx of colon cancer in family therefore will do cologuard. Asked to fill disability papers. 02/17/25: Patient is doing well today but it was noted that his blood pressure was elevated and A1c increased to 6.4% due to recent vacation. Checked glucometer, which noted average of 140 blood glucose over the past few weeks. Patient clarified that he does take 6 units of insulin Lispro with meals in addition to his long acting insulin. Discussed with the patient about possibility of putting him on Ozempic as he qualifies under his insurance given his insulin dependent type 2 diabetes mellitus with HFrEF and obesity (BMI 33.1). The patient has been approved in the past, but was not able to afford the co-pay at the time. Will see if it is possible this time. Patient also discussed wanting to upgrade his glucometer. Noted that the patient elevated BP of 149/70 today, which is not usual for the patient. Advised the patient to take his blood pressure in the morning and evening, keep a log of it, and then return with results to see if changes in blood pressure medication is necessary. Patient is not sure of his PAD status, but still follows his business machine operator Dr. Lyles for management of this and his HFrEF. No updates from cardiology per patient. Patient does still have periodic chest pain that worsens with exertion and improves with rest. Will have patient follow up in 2 months. Will follow up on if patient is able to afford Ozempic co-pay, if patient is able to tolerate Ozempic, if patient is able to cut back on insulin. During next visit, will also discuss putting patient on dapagliflozin, follow up on results of cologuard, and possibly increasing lisinopril depending on home blood pressure log. Will also discuss having patient obtain pneumonia vaccine given his age in next visit. Review of Systems Review of Systems Systems Reviewed: All systems reviewed, normal except as documented Objective/Exam Narrative Physical exam: Physical Exam: General: Alert, no acute distress. Skin: Warm, dry, intact. Head: Normocephalic, atraumatic. Eye: Normal conjunctiva, PERRL. Throat: Oral mucosa moist. No obvious lesions in oropharynx. Cardiovascular: Regular rate and rhythm, no murmur, +S1/S2. Respiratory: Lungs are clear to auscultation, respirations unlabored, no crackles, no wheezing. Gastrointestinal: Soft, nontender, non-distended. No guarding or rebound tenderness. Extremities: No edema, no cyanosis, no clubbing. 2+ radial pulse bilaterally, 2+ pedal pulse bilaterally. Neuro: No focal deficits observed. Conversant, moving all extremities. No overt cerebellar signs/incoordination. Psychiatric: Cooperative, appropriate affect. Assessment & Plan Diagnosis / Problem List (1) Insulin dependent diabetes mellitus: Status: Acute Assessment & Plan: Last A1c was 6.4 (02/17/2025) Plan: metformin 1000mg qday, insulin lispro 6 units TIDWM and insulin glargine 20 units qpm. Will order A1c, UA, and urine microalbumin for follow-up visit in 2 months Refilled medications (2) HFrEF (heart failure with reduced ejection fraction): Status: Acute Assessment & Plan: Current EF 45% still seeing business machine operator consistently. Will have patient follow up with business machine operator Still having some chest pain with SOB that improves with rest. States business machine operator is aware. Plan: Continnue GDMT Refilled medications (3) HLD (hyperlipidemia): Status: Acute Qualifiers: Hyperlipidemia type: unspecified Qualified Code(s): E78.5 - Hyperlipidemia, unspecified Assessment & Plan: last lipid showed LDL 60 with HDL 60 and cholesterol 132 Plan: Refilled atorvastatin 40mg HS Lipid panel in 2 month follow up (4) Depression: Status: Acute Qualifiers: Depression Type: unspecified Qualified Code(s): F32.A - Depression, unspecified Assessment & Plan: Patient noted to have depression and takes sertraline 50 mg daily Plan: - Continue sertraline 50 mg daily - PHQ-9 checks with every visit (5) HTN (hypertension): Status: Acute Qualifiers: Hypertension type: primary hypertension Qualified Code(s): I10 - Essential (primary) hypertension Assessment & Plan: Patient noted to have a blood pressure of 149/70 during 02/17/25 visit Plan: - Advised patient to take blood pressure in morning and evening and return in 2 months to see if increase in lisinopril is needed - Continue lisinopril 5 mg daily - Continue carvedilol 3.125 mg BID (6) Stable angina: Status: Acute Assessment & Plan: Patient noted to have right sided chest pain that worsens with exertion and improves with rest. It does not seem to bother the patient too much. Plan: - Patient to follow up with his business machine operator Dr. Lyles - Will continue to monitor Plan Patient plan of care was discussed with attending physician Dr. Alberto Yang, PGY1 Orders: Orders Lipid Panel 2 Months E11.9 - Type 2 diabetes mellitus without complications Microalbumin, Ur Rnd w Creat 2 Months E11.9 - Type 2 diabetes mellitus without complications Urinalysis 2 Months E11.9 - Type 2 diabetes mellitus without complications Ambulatory Hemoglobin A1C 2 Months E11.9 - Type 2 diabetes mellitus without complications Additional Assessment Attending note: I, Julien Rinaldi MD, attest that I was physically present for the salcido portions of the service and evaluated the patient with the resident and I reviewed and discussed the case with the resident and agree with the resident's findings and plans of care as documented above. Julien Rinaldi MD Office Procedures [facility] Level of Care Nursing/Assessment Patient Status: Established Patient Nursing Assessment/Reassessment: Medication Reconciliation, Update PMH in EMR and Vital Signs Coordination of Care: Complex Care/Chronic Disease 5 or more, Education Complex Pt/Fam, Consent,records obtained, informed consent, Lab and Imaging orders, Results/Orders obtained and Staff clarify orders Established Patient Charge Established Patient Point Assignment: 120 Established Patient Point Charge: EP Level 4 ([id number])
== END 2025-02-17 14:05 | disposition home or self-care (01) ==
LOC: HODAHC 13:00
PROVIDERS: Supervising Provider Internal Medicine
DX: E11.9 Type 2 diabetes mellitus without complications (principal); I11.0 Hypertensive heart disease with heart failure; I50.20 Unspecified systolic (congestive) heart failure; E78.5 Hyperlipidemia, unspecified; F32.A Depression, unspecified; I20.89 Other forms of angina pectoris; Z79.4 Long term (current) use of insulin; Z79.84 Long term (current) use of oral hypoglycemic drugs; E66.9 Obesity, unspecified; Z68.33 Body mass index [BMI] 33.0-33.9, adult
CPT/HCPCS: 99214; G0463